=== PATIENT | female | born 1995 | race Caucasian/White ===

== ENCOUNTER 2017-09-24 11:59 | Inpatient (IN) | payer OTHER ==
[2017-09-24 16:07] VITALS: BMI 27.4
--- NOTE | 2017-09-24 18:01 | HP ---
COWS - Scale Resting Pulse: 0= [place] 80 or Below Sweatin= Chills/Flushing Restless Observation: 1= Difficult to Sit Still Pupil Size: 1= Pupils >than Normal Bone or Joint Aches: 2= Severe Diffuse Aches Runny Nose/ Eye Tearin= Nasal Congestion GI Upset > 30mins: 1= Stomach Cramp Tremor Observation: 1= Tremor [place], Not Seen Yawning Observation: 0= None Anxiety or Irritability: 2=Irritable/Anxious Goose Flesh Skin: 3=Piloerection COWS Score: 13 Admission [facility] Chief Complaint: Heroin withdrawal symptoms Allergies/Adverse Reactions: Allergies Allergy/AdvReac Type Severity Reaction Status Date / Time No Known Allergies Allergy Verified 09/24/17 17:00 History of Present Illness: Patient presents with Heroin withdrawal symptoms. Pt started using heroin at age 18. Inject and snorts up to 5-6 bags daily. Last time used was today in the afternoon. Patient denies using cocaine and marijuana but is unsure if heroin is mixed with substances. Attempted detox in past, one year ago here at [facility]. Patient has history of anxiety and depression. Denies SI/HI and suicide attempts. Exam Limitations: No Limitations - Ebola screening Have you traveled outside of the country in the last 21 days: No (N) Have you had contact with anyone from an Ebola affected area: No Have you been sick,other than usual withdrawal symptoms: No Do you have a fever: No - Review of Systems Constitutional: Chills, Night Sweats, Changes in sleep EENT: reports: Nose Congestion Respiratory: reports: No Symptoms reported Cardiac: reports: No Symptoms Reported GI: reports: Nausea, Poor Fluid Intake, Abdominal cramping : reports: No Symptoms Reported Musculoskeletal: reports: Back Pain, Joint Pain, Muscle Pain Integumentary: reports: Flushing, Sweating Neuro: reports: Headache, Tremors Endocrine: reports: Flushing Hematology: reports: No Symptoms Reported Psychiatric: reports: Orientated x3, Anxious, Depressed Patient History - Patient Medical History Hx Anemia: No Hx Asthma: No Hx Chronic Obstructive Pulmonary Disease (COPD): No Hx Cancer: No Hx Cardiac Disorders: No Hx Congestive Heart Failure: No Hx Hypertension: No Hx Hypercholesterolemia: No Hx Pacemaker: No HX Cerebrovascular Accident: No Hx Seizures: No Hx Dementia: No Hx Diabetes: No Hx Gastrointestinal Disorders: No Hx Liver Disease: No Hx Genitourinary Disorders: No Hx Sexually Transmitted Disorders: No Hx Renal Disease (ESRD): No Hx Thyroid Disease: No Hx Human Immunodeficiency Virus (HIV): No (tested one month ago and negative) Hx Hepatitis C: No (tested one month ago and negative) Hx Depression: Yes Hx Suicide Attempt: No (Pt states she cut her wrist under influence at age 18 yrs) Hx Bipolar Disorder: No Hx Schizophrenia: No - Patient Surgical History Past Surgical History: No Hx Neurologic Surgery: No Hx Cataract Extraction: No Hx Cardiac Surgery: No Hx Lung Surgery: No Hx Breast Surgery: No Hx Breast Biopsy: No Hx Abdominal Surgery: No Hx Appendectomy: No Hx Cholecystectomy: No Hx Genitourinary Surgery: No Hx Orthopedic Surgery: No Anesthesia Reaction: No - PPD History Previous Implant?: Yes Documented Results: Negative w/o proof Implanted On Prior R Admission?: No PPD to be Administered?: Yes - Reproductive History Last Menstrual Period: 08/06/17 Patient : No - Smoking Cessation Smoking history: Current every day smoker Have you smoked in the past 12 months: Yes Aproximately how many cigarettes per day: 10 Hx Chewing Tobacco Use: No Initiated information on smoking cessation: Yes 'Breaking Loose' booklet given: 09/24/17 - Substance & Tx. History Hx Alcohol Use: No Hx Substance Use: Yes Substance Use Type: Heroin Hx Substance Use Treatment: Yes - Substances Abused Heroin Route: Injection Frequency: Daily Amount used: 5 bags and up Age of first use: 19 Date of Last Use: 09/24/17 Admission Physical Exam BHS - Vital Signs Vital Signs: Vital Signs - 24 hr 09/24/17 16:01 Temperature 97.9 F Pulse Rate 79 Respiratory 20 Rate Blood Pressure 129/59 - Physical General Appearance: Yes: No Apparent Distress, Nourished, Appropriately Dressed , Tremorous, Anxious HEENTM: Yes: EOMI, Hearing grossly Normal, Normal ENT Inspection, Normocephalic , Normal Voice, DEYANIRA, Pharynx Normal, Nasal Congestion Respiratory: Yes: Chest Non-Tender, Lungs Clear, Normal Breath Sounds, No Respiratory Distress, No Accessory Muscle Use Neck: Yes: No masses,lesions,Nodules, Supple, Trachea in good position Breast: Yes: Breast Exam Deferred Cardiology: Yes: Regular Rhythm, Regular Rate, S1, S2 Abdominal: Yes: Normal Bowel Sounds, Non Tender, Flat, Soft Genitourinary: Yes: Within Normal Limits Back: Yes: Normal Inspection, Muscle Spasm Musculoskeletal: Yes: full range of Motion, Gait Steady, Back pain, Muscle Pain Extremities: Yes: Normal Capillary Refill, Normal Inspection, Normal Range of Motion, Non-Tender, Tremors Neurological: Yes: administration manager II-XII NML intact, Fully Oriented, Alert, Motor Strength 5/5, Depressed Affect Integumentary: Yes: Warm, Moist, Track [place] Lymphatic: Yes: Within Normal Limits - Diagnostic (1) Opioid dependence with withdrawal Current Visit: Yes Status: Acute (2) Nicotine dependence Current Visit: Yes Status: Acute Qualifiers: Substance use status: uncomplicated (3) Depressed affect Current Visit: Yes Status: Acute (4) Anxiety Current Visit: Yes Status: Acute Cleared for Admission [facility] - Detox or Rehab [facility] Level of Care: Medically Managed Detox Regimen/Protocol: Methadone [facility] Breath Alcohol Content Breath Alcohol Content: 0 Urine Pregancy Test - Result Urine Test Results: Negative- NO Line Present Urine Drug Screen - Results Drug Screen Negative: No Urine Drug Screen Results: THC-Marijuana, GORDON-Cocaine, OPI-Opiates
[2017-09-24] MEDS ORDERED: MAG HYDROX/AL HYDROX/SIMETH 30 ML UNIT-DOSE CUP PO PRN (18:10)
[2017-09-24] MEDS ORDERED: IBUPROFEN 400 MG TABLET (FP) PO PRN (18:10)
[2017-09-24] MEDS ORDERED: P-EPHED 60MG/TRIPROLIDI 2.5MG TABLET PO PRN (18:10)
[2017-09-24] MEDS ORDERED: guaiFENesin/D-METHORPHAN HB 10 ML UNIT-DOSE CUPS PO PRN (18:10)
[2017-09-24] MEDS ORDERED: LOPERAMIDE HCL 2 MG CAPSULE PO PRN (18:10)
[2017-09-24] MEDS ORDERED: MAGNESIUM CITRATE 300 ML BOTTLE PO PRN (18:10)
[2017-09-24] MEDS ORDERED: MAGNESIUM HYDROX 2400MG/30ML ORAL SUSPENSION 30 ML CUP PO PRN (18:10)
[2017-09-24] MEDS ORDERED: MENTHOL/PHENOL 1 EACH UD MM PRN (18:10)
[2017-09-24] MEDS ORDERED: ACETAMINOPHEN 325 MG TABLET (FP) PO PRN (18:10)
[2017-09-24] MEDS ORDERED: METHADONE HCL 10 MG TABLET (FOR DETOX USE ONLY) PO ONE ×2 (18:30→23:00)
[2017-09-24] MEDS ORDERED: METHADONE HCL 10 MG TABLET (FOR DETOX USE ONLY) ONE (20:47)
[2017-09-24] MEDS: diazePAM 5 MG TABLET PO PRN (20:54)
[2017-09-24] MEDS: THIAMINE HCL 100 MG TABLET (FP) PO SCH (22:19)
[2017-09-24] MEDS: MELATONIN 5 MG TABLETS PO PRN (22:20)
[2017-09-25] MEDS ORDERED: METHADONE HCL 10 MG TABLET (FOR DETOX USE ONLY) PO ONE (10:00)
--- NOTE | 2017-09-25 10:05 | CONSULT ---
[facility] Psychiatric Consult - Data Date of interview: 09/25/17 Psychiatric History: Patient found at bed, refusing to be psychiatrically evaluated.
[2017-09-25 10:34] LABS: CHLORIDE 105 mmol/L (98-107); POTASSIUM 4.5 mmol/L (3.5-5.1); SODIUM 140 mmol/L (136-145)
[2017-09-25 10:38] LABS: HEMATOCRIT 41.3 % (32.4-45.2); HEMOGLOBIN 13.8 GM/dL (10.7-15.3); MCH 29.2 pg (25.7-33.7); MCHC 33.3 g/dl (32.0-36.0); MEAN CELL VOLUME 87.7 fl (80-96); MEAN PLT VOLUME 8.7 fl (7.5-11.1); PLATELET COUNT 292 K/MM3 (134-434); RBC 4.71 M/mm3 (3.60-5.2); RDW 13.8 % (11.6-15.6); WHITE BLOOD COUNT 4.6 K/mm3 (4.0-10.0)
--- NOTE | 2017-09-25 10:39 | PN ---
S COWS - Scale Resting Pulse: 0= [place] 80 or Below Sweatin= Chills/Flushing Restless Observation: 1= Difficult to Sit Still Pupil Size: 1= Pupils >than Normal Bone or Joint Aches: 2= Severe Diffuse Aches Runny Nose/ Eye Tearin= Nasal Congestion GI Upset > 30mins: 2= Nausea/Diarrhea Tremor Observation of Outstretched Hands: 1= Tremor [place], Not Seen Yawning Observation: 2= >3x During Session Anxiety or Irritability: 1=Feels Anxious/Irritable Goose Flesh Skin: 0=Smooth Skin COWS Score: 12 S Progress Note (SOAP) Subjective: joint pain body ache sweat tremor mild gi distress Objective: 09/25/17 11:14 Vital Signs Temperature 97.5 F L 09/25/17 09:11 Pulse Rate 66 09/25/17 09:11 Respiratory Rate 20 09/25/17 09:11 Blood Pressure 109/55 09/25/17 09:11 O2 Sat by Pulse Oximetry (%) Laboratory Last Values WBC 4.6 K/mm3 (4.0-10.0) 09/25/17 08:00 RBC 4.71 M/mm3 (3.60-5.2) 09/25/17 08:00 Hgb 13.8 GM/dL (10.7-15.3) 09/25/17 08:00 Hct 41.3 % (32.4-45.2) 09/25/17 08:00 MCV 87.7 fl (80-96) 09/25/17 08:00 MCH 29.2 pg (25.7-33.7) 09/25/17 08:00 MCHC 33.3 g/dl (32.0-36.0) 09/25/17 08:00 RDW 13.8 % (11.6-15.6) 09/25/17 08:00 Plt Count 292 K/MM3 (134-434) 09/25/17 08:00 MPV 8.7 fl (7.5-11.1) 09/25/17 08:00 Sodium 140 mmol/L (136-145) 09/25/17 08:00 Potassium 4.5 mmol/L (3.5-5.1) 09/25/17 08:00 Chloride 105 mmol/L (98-107) 09/25/17 08:00 Carbon Dioxide 26 mmol/L (21-32) 09/25/17 08:00 Anion Gap 9 (8-16) 09/25/17 08:00 BUN 12 mg/dL (7-18) 09/25/17 08:00 Creatinine 0.7 mg/dL (0.55-1.02) 09/25/17 08:00 Creat Clearance w eGFR > 60 (>60) 09/25/17 08:00 Random Glucose 82 mg/dL (74-106) 09/25/17 08:00 Calcium 9.1 mg/dL (8.5-10.1) 09/25/17 08:00 Total Bilirubin 0.1 mg/dL (0.2-1.0) L 09/25/17 08:00 AST 11 U/L (15-37) L 09/25/17 08:00 ALT 25 U/L (12-78) 09/25/17 08:00 Alkaline Phosphatase 62 U/L (45-117) 09/25/17 08:00 Total Protein 7.0 g/dl (6.4-8.2) 09/25/17 08:00 Albumin 3.5 g/dl (3.4-5.0) 09/25/17 08:00 lab noted Assessment: 09/25/17 11:14 withdrawal sx Plan: continue detox
[2017-09-25] MEDS: PRENATAL VITAMINS W/ FOLIC ACID TABLET (FP) PO SCH (10:44)
[2017-09-25] MEDS: diazePAM 5 MG TABLET PO PRN ×3 (10:45→22:07)
[2017-09-25] MEDS: NICOTINE 21 MG/24 HOURS TOPICAL PATCH TD SCH (10:45)
[2017-09-25 11:00] LABS: ALBUMIN 3.5 g/dl (3.4-5.0); ALK PHOS 62 U/L (45-117); ANION GAP 9 (8-16); BILIRUBIN,TOTAL 0.1 mg/dL (0.2-1.0); BLOOD UREA NITROGEN 12 mg/dL (7-18); CALCIUM 9.1 mg/dL (8.5-10.1); CO2 26 mmol/L (21-32); CREATININE 0.7 mg/dL (0.55-1.02); GLUCOSE,RANDOM 82 mg/dL (74-106); SGOT/AST 11 U/L (15-37); SGPT/ALT 25 U/L (12-78)
--- NOTE | 2017-09-25 11:43 | EKG ---
Test Reason : Blood Pressure : / mmHG Vent. Rate : 066 BPM Atrial Rate : 066 BPM P-R Int : 156 ms QRS Dur : 098 ms QT Int : 386 ms P-R-T Axes : 070 086 060 degrees QTc Int : 404 ms NORMAL SINUS RHYTHM NORMAL ECG NO PREVIOUS ECGS AVAILABLE Confirmed by FIONA TAYLOR, NISHA ([id number]) on 09/25/2017 11:43:23 AM Referred By: Confirmed By:NISHA JAIMES MD
[2017-09-25] MEDS: MELATONIN 5 MG TABLETS PO PRN (22:07)
[2017-09-25] MEDS: THIAMINE HCL 100 MG TABLET (FP) PO SCH (22:07)
[2017-09-26] MEDS ORDERED: METHADONE HCL 5 MG TABLET (FOR DETOX USE ONLY) PO ONE (10:00)
[2017-09-26] MEDS: PRENATAL VITAMINS W/ FOLIC ACID TABLET (FP) PO SCH (10:10)
[2017-09-26] MEDS: diazePAM 5 MG TABLET PO PRN ×3 (10:10→19:58)
[2017-09-26] MEDS: NICOTINE 21 MG/24 HOURS TOPICAL PATCH TD SCH (10:11)
--- NOTE | 2017-09-26 14:10 | PN ---
S COWS - Scale Resting Pulse: 0= [place] 80 or Below Sweatin= Chills/Flushing Restless Observation: 3= Extraneous Movement Pupil Size: 1= Pupils >than Normal Bone or Joint Aches: 2= Severe Diffuse Aches Runny Nose/ Eye Tearin= Runny Nose/Eyes GI Upset > 30mins: 2= Nausea/Diarrhea Tremor Observation of Outstretched Hands: 2= Slight Tremor Visible Yawning Observation: 2= >3x During Session Anxiety or Irritability: 2=Irritable/Anxious Goose Flesh Skin: 0=Smooth Skin COWS Score: 17 BHS Progress Note (SOAP) Subjective: alert,irritable,anxious,interrupted sleep,tremor,pain in the body and back Objective: 09/26/17 14:08 Vital Signs Temperature 98.1 F 09/26/17 14:07 Pulse Rate 92 H 09/26/17 14:07 Respiratory Rate 20 09/26/17 14:07 Blood Pressure 110/61 09/26/17 14:07 O2 Sat by Pulse Oximetry (%) 09/26/17 14:09 Laboratory Last Values WBC 4.6 K/mm3 (4.0-10.0) 09/25/17 08:00 RBC 4.71 M/mm3 (3.60-5.2) 09/25/17 08:00 Hgb 13.8 GM/dL (10.7-15.3) 09/25/17 08:00 Hct 41.3 % (32.4-45.2) 09/25/17 08:00 MCV 87.7 fl (80-96) 09/25/17 08:00 MCH 29.2 pg (25.7-33.7) 09/25/17 08:00 MCHC 33.3 g/dl (32.0-36.0) 09/25/17 08:00 RDW 13.8 % (11.6-15.6) 09/25/17 08:00 Plt Count 292 K/MM3 (134-434) 09/25/17 08:00 MPV 8.7 fl (7.5-11.1) 09/25/17 08:00 Sodium 140 mmol/L (136-145) 09/25/17 08:00 Potassium 4.5 mmol/L (3.5-5.1) 09/25/17 08:00 Chloride 105 mmol/L (98-107) 09/25/17 08:00 Carbon Dioxide 26 mmol/L (21-32) 09/25/17 08:00 Anion Gap 9 (8-16) 09/25/17 08:00 BUN 12 mg/dL (7-18) 09/25/17 08:00 Creatinine 0.7 mg/dL (0.55-1.02) 09/25/17 08:00 Creat Clearance w eGFR > 60 (>60) 09/25/17 08:00 Random Glucose 82 mg/dL (74-106) 09/25/17 08:00 Calcium 9.1 mg/dL (8.5-10.1) 09/25/17 08:00 Total Bilirubin 0.1 mg/dL (0.2-1.0) L 09/25/17 08:00 AST 11 U/L (15-37) L 09/25/17 08:00 ALT 25 U/L (12-78) 09/25/17 08:00 Alkaline Phosphatase 62 U/L (45-117) 09/25/17 08:00 Total Protein 7.0 g/dl (6.4-8.2) 09/25/17 08:00 Albumin 3.5 g/dl (3.4-5.0) 09/25/17 08:00 RPR Titer Nonreactive (NONREACTIVE) 09/25/17 08:00 Assessment: 09/26/17 14:09 withdrawal symptom Plan: continue detox
[2017-09-26] MEDS: MELATONIN 5 MG TABLETS PO PRN (22:05)
[2017-09-26] MEDS: THIAMINE HCL 100 MG TABLET (FP) PO SCH (22:05)
[2017-09-26] MEDS: hydrOXYzine PAMOATE 50 MG CAPSULE (FP) PO PRN (22:05)
[2017-09-27] MEDS ORDERED: METHADONE HCL 5 MG TABLET (FOR DETOX USE ONLY) PO ONE (10:00)
[2017-09-27] MEDS: PRENATAL VITAMINS W/ FOLIC ACID TABLET (FP) PO SCH (10:16)
[2017-09-27] MEDS: diazePAM 5 MG TABLET PO PRN ×2 (10:17→16:53)
[2017-09-27] MEDS: NICOTINE 21 MG/24 HOURS TOPICAL PATCH TD SCH (10:18)
--- NOTE | 2017-09-27 14:04 | PN ---
BHS Progress Note (SOAP) Subjective: alert,irritable,anxious,interrupted sleep,pain in the body Objective: 09/27/17 14:03 Vital Signs Temperature 97.7 F 09/27/17 10:49 Pulse Rate 64 09/27/17 10:49 Respiratory Rate 18 09/27/17 10:49 Blood Pressure 115/73 09/27/17 10:49 O2 Sat by Pulse Oximetry (%) Assessment: 09/27/17 14:03 withdrawal symptom Plan: continue detox
[2017-09-27] MEDS: NICOTINE POLACRILEX 2 MG GUM BC PRN (16:54)
[2017-09-27] MEDS: THIAMINE HCL 100 MG TABLET (FP) PO SCH (23:05)
[2017-09-27] MEDS: MELATONIN 5 MG TABLETS PO PRN (23:05)
[2017-09-27] MEDS: hydrOXYzine PAMOATE 50 MG CAPSULE (FP) PO PRN (23:07)
[2017-09-28] MEDS ORDERED: METHADONE HCL 10 MG TABLET (FOR DETOX USE ONLY) PO ONE (10:00)
[2017-09-28] MEDS: PRENATAL VITAMINS W/ FOLIC ACID TABLET (FP) PO SCH (10:08)
[2017-09-28] MEDS: NICOTINE 21 MG/24 HOURS TOPICAL PATCH TD SCH (10:09)
--- NOTE | 2017-09-28 12:37 | PN ---
BHS Progress Note (SOAP) Subjective: feeling better less sweat no tremor mild body ache Objective: 09/28/17 12:37 Vital Signs Temperature 98.0 F 09/28/17 11:08 Pulse Rate 79 09/28/17 11:08 Respiratory Rate 16 09/28/17 11:08 Blood Pressure 144/76 09/28/17 11:08 O2 Sat by Pulse Oximetry (%) Laboratory Last Values WBC 4.6 K/mm3 (4.0-10.0) 09/25/17 08:00 RBC 4.71 M/mm3 (3.60-5.2) 09/25/17 08:00 Hgb 13.8 GM/dL (10.7-15.3) 09/25/17 08:00 Hct 41.3 % (32.4-45.2) 09/25/17 08:00 MCV 87.7 fl (80-96) 09/25/17 08:00 MCH 29.2 pg (25.7-33.7) 09/25/17 08:00 MCHC 33.3 g/dl (32.0-36.0) 09/25/17 08:00 RDW 13.8 % (11.6-15.6) 09/25/17 08:00 Plt Count 292 K/MM3 (134-434) 09/25/17 08:00 MPV 8.7 fl (7.5-11.1) 09/25/17 08:00 Sodium 140 mmol/L (136-145) 09/25/17 08:00 Potassium 4.5 mmol/L (3.5-5.1) 09/25/17 08:00 Chloride 105 mmol/L (98-107) 09/25/17 08:00 Carbon Dioxide 26 mmol/L (21-32) 09/25/17 08:00 Anion Gap 9 (8-16) 09/25/17 08:00 BUN 12 mg/dL (7-18) 09/25/17 08:00 Creatinine 0.7 mg/dL (0.55-1.02) 09/25/17 08:00 Creat Clearance w eGFR > 60 (>60) 09/25/17 08:00 Random Glucose 82 mg/dL (74-106) 09/25/17 08:00 Calcium 9.1 mg/dL (8.5-10.1) 09/25/17 08:00 Total Bilirubin 0.1 mg/dL (0.2-1.0) L 09/25/17 08:00 AST 11 U/L (15-37) L 09/25/17 08:00 ALT 25 U/L (12-78) 09/25/17 08:00 Alkaline Phosphatase 62 U/L (45-117) 09/25/17 08:00 Total Protein 7.0 g/dl (6.4-8.2) 09/25/17 08:00 Albumin 3.5 g/dl (3.4-5.0) 09/25/17 08:00 RPR Titer Nonreactive (NONREACTIVE) 09/25/17 08:00 lab noted Assessment: 09/28/17 12:37 mild withdrawal sx Plan: medically supervised detox
[2017-09-28] MEDS: NICOTINE POLACRILEX 2 MG GUM BC PRN ×2 (17:46→22:13)
[2017-09-28] MEDS: THIAMINE HCL 100 MG TABLET (FP) PO SCH (22:12)
[2017-09-28] MEDS: hydrOXYzine PAMOATE 50 MG CAPSULE (FP) PO PRN (22:12)
[2017-09-29] MEDS ORDERED: METHADONE HCL 5 MG TABLET (FOR DETOX USE ONLY) PO ONE (06:00)
--- NOTE | 2017-09-29 09:06 | DS ---
[facility] Detox Discharge Summary Admission Date: 09/24/17 Discharge Date: 09/29/17 - History Present History: Opioid Dependence Additional Comments: 22 years old female admitted on09/24/17 for opiate withdrawal sx completed opiate detox regimen tolerated well denies opiate withdrawal sx alert oriented x 3 no acute distress aftercare [facility] health services for physical and psychosocial issues patient agrees community self help self management groups and meetings for sobriety support - Physical Exam Results Vital Signs: Vital Signs Temperature 97.3 F L 09/29/17 08:01 Pulse Rate 90 09/29/17 08:01 Respiratory Rate 20 09/29/17 08:01 Blood Pressure 119/71 09/29/17 08:01 O2 Sat by Pulse Oximetry (%) Pertinent Admission Physical Exam Findings: opiate withdrawal sx Vital Signs Temperature 97.3 F L 09/29/17 08:01 Pulse Rate 90 09/29/17 08:01 Respiratory Rate 20 09/29/17 08:01 Blood Pressure 119/71 09/29/17 08:01 O2 Sat by Pulse Oximetry (%) Laboratory Last Values WBC 4.6 K/mm3 (4.0-10.0) 09/25/17 08:00 RBC 4.71 M/mm3 (3.60-5.2) 09/25/17 08:00 Hgb 13.8 GM/dL (10.7-15.3) 09/25/17 08:00 Hct 41.3 % (32.4-45.2) 09/25/17 08:00 MCV 87.7 fl (80-96) 09/25/17 08:00 MCH 29.2 pg (25.7-33.7) 09/25/17 08:00 MCHC 33.3 g/dl (32.0-36.0) 09/25/17 08:00 RDW 13.8 % (11.6-15.6) 09/25/17 08:00 Plt Count 292 K/MM3 (134-434) 09/25/17 08:00 MPV 8.7 fl (7.5-11.1) 09/25/17 08:00 Sodium 140 mmol/L (136-145) 09/25/17 08:00 Potassium 4.5 mmol/L (3.5-5.1) 09/25/17 08:00 Chloride 105 mmol/L (98-107) 09/25/17 08:00 Carbon Dioxide 26 mmol/L (21-32) 09/25/17 08:00 Anion Gap 9 (8-16) 09/25/17 08:00 BUN 12 mg/dL (7-18) 09/25/17 08:00 Creatinine 0.7 mg/dL (0.55-1.02) 09/25/17 08:00 Creat Clearance w eGFR > 60 (>60) 09/25/17 08:00 Random Glucose 82 mg/dL (74-106) 09/25/17 08:00 Calcium 9.1 mg/dL (8.5-10.1) 09/25/17 08:00 Total Bilirubin 0.1 mg/dL (0.2-1.0) L 09/25/17 08:00 AST 11 U/L (15-37) L 09/25/17 08:00 ALT 25 U/L (12-78) 09/25/17 08:00 Alkaline Phosphatase 62 U/L (45-117) 09/25/17 08:00 Total Protein 7.0 g/dl (6.4-8.2) 09/25/17 08:00 Albumin 3.5 g/dl (3.4-5.0) 09/25/17 08:00 RPR Titer Nonreactive (NONREACTIVE) 09/25/17 08:00 lab noted - Treatment Hospital Course: Detox Protocol Followed, Detoxed Safely, Responded well, Discharged Condition Good, Rehab Referral Accepted Patient has Accepted a Rehab Referral to: [facility] services/self-help groups - Medication Discharge Medications: Ambulatory Orders Famotidine [Pepcid -] 40 mg PO DAILY #10 tablet 12/22/15 NK [No Known Home Medication] 09/24/17 - Diagnosis (1) Nicotine dependence Current Visit: Yes Status: Acute Qualifiers: Nicotine product type: cigarettes Substance use status: in withdrawal Qualified Code(s): F17.213 - Nicotine dependence, cigarettes, with withdrawal (2) Opioid dependence with withdrawal Current Visit: Yes Status: Acute - AMA Did Patient Leave Against Medical Advice: No
[2017-09-29] MEDS: PRENATAL VITAMINS W/ FOLIC ACID TABLET (FP) PO SCH (10:28)
[2017-09-29] MEDS: NICOTINE 21 MG/24 HOURS TOPICAL PATCH TD SCH (10:28)
[2017-09-29 10:33] VITALS: BP 108/58; PULSE 87; TEMP 97.5
== END 2017-09-29 11:28 | disposition home or self-care (01) | DRG 773 ==
LOC: YASAS 11:59 → Y6N 17:39 → MERGE 17:39 → UNMERGE 17:39 → Y6N 09-25 15:47
PROVIDERS: ADMIT Surgery; ATTEND Surgery
PROC: HZ2ZZZZ Detoxification Services for Substance Abuse Treatment (ICD-10-PCS; principal; 2017-09-24)
DX: F11.23 Opioid dependence with withdrawal (principal); F17.213 Nicotine dependence, cigarettes, with withdrawal; F32.9 Major depressive disorder, single episode, unspecified; F41.9 Anxiety disorder, unspecified
CPT/HCPCS: 36415; 80053; 85027; 86593; 93005; 93010

== ENCOUNTER 2017-11-05 11:58 | Inpatient (IN) | payer OTHER ==
[2017-11-05 13:24] VITALS: BMI 27.4
--- NOTE | 2017-11-05 20:27 | HP ---
COWS - Scale Resting Pulse: 1= [place] 81-100 Sweatin=Flushed/Facial Moisture Restless Observation: 1= Difficult to Sit Still Pupil Size: 0= Normal to Room Light Bone or Joint Aches: 2= Severe Diffuse Aches Runny Nose/ Eye Tearin= Runny Nose/Eyes GI Upset > 30mins: 1= Stomach Cramp Tremor Observation: 4= Gross Tremor/Twitching Yawning Observation: 0= None Anxiety or Irritability: 4=Extreme Anxiety Goose Flesh Skin: 0=Smooth Skin COWS Score: 17 Admission [facility] Chief Complaint: Heroin withdrawal symptoms Allergies/Adverse Reactions: Allergies Allergy/AdvReac Type Severity Reaction Status Date / Time No Known Allergies Allergy Verified 11/05/17 15:11 History of Present Illness: 22 years old female with 3 years history of heroine dependence is seeking admission to detox. Patient was in previous detox at [facility] and reports 7 months of sobriety. She has medical history of urinary tract infection and anxiety. She denies suicide attempt and suicidal ideation at this time. Exam Limitations: No Limitations - Ebola screening Have you traveled outside of the country in the last 21 days: No (N) Have you had contact with anyone from an Ebola affected area: No Have you been sick,other than usual withdrawal symptoms: No Do you have a fever: No - Review of Systems Constitutional: Chills, Loss of Appetite, Malaise, Night Sweats, Changes in sleep, Weakness EENT: reports: Tearing Respiratory: reports: No Symptoms reported Cardiac: reports: No Symptoms Reported GI: reports: Poor Fluid Intake, Abdominal cramping : reports: No Symptoms Reported Musculoskeletal: reports: Joint Pain Integumentary: reports: Dryness Neuro: reports: Tremors Endocrine: reports: No Symptoms Reported Hematology: reports: No Symptoms Reported Psychiatric: reports: Anxious Other Systems: Reviewed and Negative Patient History - Patient Medical History Hx Anemia: No Hx Asthma: No Hx Chronic Obstructive Pulmonary Disease (COPD): No Hx Cancer: No Hx Cardiac Disorders: No Hx Congestive Heart Failure: No Hx Hypertension: No Hx Hypercholesterolemia: No Hx Pacemaker: No HX Cerebrovascular Accident: No Hx Seizures: No Hx Dementia: No Hx Diabetes: No Hx Gastrointestinal Disorders: No Hx Liver Disease: No Hx Genitourinary Disorders: Yes (UTI) Hx Sexually Transmitted Disorders: No Hx Renal Disease (ESRD): No Hx Thyroid Disease: No Hx Human Immunodeficiency Virus (HIV): No (Negative 2018) Hx Hepatitis C: No (Negative 2018) Hx Depression: No Hx Suicide Attempt: No (Denies suicide attempt and suicidal ideation at this time) Hx Bipolar Disorder: No Hx Schizophrenia: No Other Medical History: Anxiety - Not on medication - Patient Surgical History Past Surgical History: No Hx Neurologic Surgery: No Hx Cataract Extraction: No Hx Cardiac Surgery: No Hx Lung Surgery: No Hx Breast Surgery: No Hx Breast Biopsy: No Hx Abdominal Surgery: No Hx Appendectomy: No Hx Cholecystectomy: No Hx Genitourinary Surgery: No Hx Section: No Hx Orthopedic Surgery: No Anesthesia Reaction: No - PPD History Previous Implant?: Yes Documented Results: Negative w/proof Implanted On Prior [facility] Admission?: Yes Date: 09/26/17 Results: 0 mm PPD to be Administered?: No - Reproductive History Patient is a Female of Child Bearing Age (11 -55 yrs old): Yes Last Menstrual Period: 10/19/17 Patient : No - Smoking Cessation Smoking history: Current every day smoker Have you smoked in the past 12 months: Yes Aproximately how many cigarettes per day: 10 Hx Chewing Tobacco Use: No Initiated information on smoking cessation: Yes 'Breaking Loose' booklet given: 11/05/17 - Substance & Tx. History Hx Alcohol Use: No Hx Substance Use: Yes Substance Use Type: Heroin (Patient denies marijuana and benzodiazepine use.) Hx Substance Use Treatment: Yes ([facility] 2017) - Substances Abused Heroin Route: Injection Frequency: Daily Amount used: 5 bags Age of first use: 19 Date of Last Use: 11/05/17 Family Disease History - Family Disease History Family History: Denies Admission Physical Exam [facility] - Vital Signs Vital Signs: Vital Signs - 24 hr 11/05/17 13:21 Temperature 98 F Pulse Rate 98 H Respiratory 20 Rate Blood Pressure 131/75 - Physical General Appearance: Yes: Moderate Distress, Tremorous, Irritable, Anxious HEENTM: Yes: EOMI, Normal ENT Inspection, Normocephalic, Normal Voice, DEYANIRA Respiratory: Yes: Lungs Clear, Normal Breath Sounds, No Respiratory Distress, No Accessory Muscle Use Neck: Yes: Supple Breast: Yes: Breast Exam Deferred Cardiology: Yes: Tachycardia Abdominal: Yes: Normal Bowel Sounds, Soft Genitourinary: Yes: Within Normal Limits Back: Yes: Normal Inspection Musculoskeletal: Yes: Muscle Pain Extremities: Yes: Tremors Neurological: Yes: Alert, Normal Mood/Affect Integumentary: Yes: Dry Lymphatic: Yes: Within Normal Limits - Diagnostic (1) Nicotine dependence Current Visit: Yes Status: Chronic Qualifiers: Nicotine product type: cigarettes Substance use status: in withdrawal Qualified Code(s): F17.213 - Nicotine dependence, cigarettes, with withdrawal (2) Opioid dependence with withdrawal Current Visit: Yes Status: Chronic BHS Breath Alcohol Content Breath Alcohol Content: 0 Urine Pregancy Test - Result Urine Test Results: Negative- NO Line Present Urine Drug Screen - Results Drug Screen Negative: No Urine Drug Screen Results: THC-Marijuana, OPI-Opiates, BZO-Benzodiazepines
[2017-11-05] MEDS ORDERED: MENTHOL/PHENOL 1 EACH UD MM PRN (20:38)
[2017-11-05] MEDS ORDERED: LOPERAMIDE HCL 2 MG CAPSULE PO PRN (20:38)
[2017-11-05] MEDS ORDERED: MAGNESIUM CITRATE 300 ML BOTTLE PO PRN (20:38)
[2017-11-05] MEDS ORDERED: P-EPHED 60MG/TRIPROLIDI 2.5MG TABLET PO PRN (20:38)
[2017-11-05] MEDS ORDERED: IBUPROFEN 400 MG TABLET (FP) PO PRN (20:38)
[2017-11-05] MEDS ORDERED: guaiFENesin/D-METHORPHAN HB 10 ML UNIT-DOSE CUPS PO PRN (20:38)
[2017-11-05] MEDS ORDERED: ACETAMINOPHEN 325 MG TABLET (FP) PO PRN (20:38)
[2017-11-05] MEDS ORDERED: MAG HYDROX/AL HYDROX/SIMETH 30 ML UNIT-DOSE CUP PO PRN (20:38)
[2017-11-05] MEDS ORDERED: MAGNESIUM HYDROX 2400MG/30ML ORAL SUSPENSION 30 ML CUP PO PRN (20:38)
[2017-11-05] MEDS ORDERED: METHADONE HCL 10 MG TABLET (FOR DETOX USE ONLY) PO ONE ×2 (20:45→23:00)
[2017-11-05] MEDS: diazePAM 5 MG TABLET PO PRN (21:14)
[2017-11-05] MEDS ORDERED: MELATONIN 5 MG TABLETS PO PRN (22:00)
[2017-11-05] MEDS: THIAMINE HCL 100 MG TABLET (FP) PO SCH (22:31)
[2017-11-06 02:18] LABS: URINE APPEARANCE TURBID; URINE BILIRUBIN NEGATIVE (<2.0 mg/dL); URINE COLOR YELLOW; URINE GLUCOSE (UA) NEGATIVE (NEGATIVE); URINE KETONE NEGATIVE (NEGATIVE); URINE LEUK ESTERASE NEGATIVE (NEGATIVE); URINE NITRITE NEGATIVE (NEGATIVE); URINE UROBILINOGEN NEGATIVE mg/dL (0.2-1.0)
[2017-11-06 02:38] LABS: URINE PROTEIN 1+ (NEGATIVE)
[2017-11-06 02:42] LABS: EPI CELLS MODERATE /HPF (FEW); URINE BACTERIA MANY /hpf (NONE SEEN); URINE MUCUS MODERATE
--- NOTE | 2017-11-06 08:58 | CONSULT ---
[facility] Psychiatric Consult - Data Date of interview: 11/06/17 Admission source: [facility] Identifying data: This is 22 years old female, single, unemployed, living with family, with no psychiatric hospitalization histoey, with 3 years history of heroine dependence is seeking admission to detox. Substance Abuse History: - Smoking Cessation. Smoking history: Current every day smoker. Have you smoked in the past 12 months: Yes. Aproximately how many cigarettes per day: 10. Hx Chewing Tobacco Use: No. Initiated information on smoking cessation: Yes. 'Breaking Loose' booklet given: 11/05/17. - Substance & Tx. History. Hx Alcohol Use: No. Hx Substance Use: Yes. Substance Use Type : Heroin (Patient denies marijuana and benzodiazepine use.). Hx Substance Use Treatment: Yes ([facility] 2017). - Substances Abused. Heroin. Route: Injection. Frequency: Daily. Amount used: 5 bags. Age of first use: 19. Date of Last Use: 11/05/17 Medical History: Denies significant medical issues. History of UTI as per computer Psychiatric History: Patient reports anxiety and insomnia, reports nos psychiatric hospitalization hiustory, reports no medicatiomnsn taking prior to admission. Asking for isomnia medications. Denies suicidal, homicidal history Physical/Sexual Abuse/Trauma History: Denies Additional Comment: Observation. Seroquel 100mg po qhs Mental Status Exam - Mental Status Exam Alert and Oriented to: Person Cognitive Function: Fair Patient Appearance: Unkempt Mood: Sad Affect: Flat Patient Behavior: Sedated Speech Pattern: Delayed Voice Loudness: Mildly Soft/Quiet Thought Process: Goal Oriented Thought Disorder: Being Controlled Hallucinations: Denies Suicidal Ideation: Denies Homicidal Ideation: Denies Insight/Judgement: Fair Sleep: Difficulty falling asleep Appetite: Fair Muscle strength/Tone: Mild Hypotonicity Gait/Station: Shuffling Additional Comments: Observation. Seroquel 100mg po qhs Psychiatric Findings - Problem List ([place] 1, 2,3) (1) Nicotine dependence Current Visit: Yes Status: Chronic Qualifiers: Nicotine product type: cigarettes Substance use status: in withdrawal Qualified Code(s): F17.213 - Nicotine dependence, cigarettes, with withdrawal (2) Opioid dependence with withdrawal Current Visit: Yes Status: Chronic (3) Anxiety Current Visit: No Status: Acute (4) Gastroenteritis Current Visit: No Status: Acute (5) Opioid dependence with withdrawal Current Visit: No Status: Chronic (6) UTI (lower urinary tract infection) Current Visit: No Status: Chronic (7) Opioid-induced sleep disorder, insomnia type, with onset during discontinuation/withdrawal Current Visit: Yes Status: Acute - Initial Treatment Plan Initial Treatment Plan: Observation. Seroquel 100mg po qhs
[2017-11-06] MEDS ORDERED: METHADONE HCL 10 MG TABLET (FOR DETOX USE ONLY) PO ONE (10:00)
[2017-11-06 10:15] LABS: HEMOGLOBIN 12.6 GM/dL (10.7-15.3); MCH 29.5 pg (25.7-33.7); MCHC 34.1 g/dl (32.0-36.0); MEAN CELL VOLUME 86.6 fl (80-96); MEAN PLT VOLUME 8.3 fl (7.5-11.1); PLATELET COUNT 290 K/MM3 (134-434); RBC 4.27 M/mm3 (3.60-5.2); RDW 13.9 % (11.6-15.6); WHITE BLOOD COUNT 5.7 K/mm3 (4.0-10.0)
[2017-11-06 10:50] LABS: CHLORIDE 107 mmol/L (98-107); POTASSIUM 4.2 mmol/L (3.5-5.1); SODIUM 142 mmol/L (136-145)
[2017-11-06] MEDS: diazePAM 5 MG TABLET PO PRN ×4 (10:53→23:56)
[2017-11-06] MEDS: PRENATAL VITAMINS W/ FOLIC ACID TABLET (FP) PO SCH (10:53)
[2017-11-06] MEDS: NICOTINE 14 MG/24 HOURS TOPICAL PATCH TD SCH (10:55)
[2017-11-06 11:12] LABS: ALBUMIN 3.4 g/dl (3.4-5.0); ALK PHOS 66 U/L (45-117); ANION GAP 9 (8-16); BILIRUBIN,TOTAL 0.4 mg/dL (0.2-1.0); BLOOD UREA NITROGEN 12 mg/dL (7-18); CALCIUM 8.9 mg/dL (8.5-10.1); CO2 26 mmol/L (21-32); CREATININE 0.7 mg/dL (0.55-1.02); GLUCOSE,RANDOM 86 mg/dL (74-106); SGOT/AST 11 U/L (15-37); SGPT/ALT 19 U/L (12-78); TOT PROT 6.6 g/dl (6.4-8.2)
--- NOTE | 2017-11-06 11:27 | PN ---
BHS COWS - Scale Resting Pulse: 1= [place] 81-100 Sweatin= Chills/Flushing Restless Observation: 1= Difficult to Sit Still Pupil Size: 1= Pupils >than Normal Bone or Joint Aches: 2= Severe Diffuse Aches Runny Nose/ Eye Tearin= Runny Nose/Eyes GI Upset > 30mins: 2= Nausea/Diarrhea Tremor Observation of Outstretched Hands: 2= Slight Tremor Visible Yawning Observation: 2= >3x During Session Anxiety or Irritability: 2=Irritable/Anxious Goose Flesh Skin: 0=Smooth Skin COWS Score: 16 BHS Progress Note (SOAP) Subjective: JOINTS PAIN BODY ACHES SWEAT TREMOR RESTLESSNESS Objective: 11/06/17 11:28 Vital Signs Temperature 98.2 F 11/06/17 10:26 Pulse Rate 83 11/06/17 10:26 Respiratory Rate 18 11/06/17 10:26 Blood Pressure 108/58 11/06/17 10:26 O2 Sat by Pulse Oximetry (%) Laboratory Last Values WBC 5.7 K/mm3 (4.0-10.0) 11/06/17 07:30 RBC 4.27 M/mm3 (3.60-5.2) 11/06/17 07:30 Hgb 12.6 GM/dL (10.7-15.3) 11/06/17 07:30 Hct 37.0 % (32.4-45.2) 11/06/17 07:30 MCV 86.6 fl (80-96) 11/06/17 07:30 MCH 29.5 pg (25.7-33.7) 11/06/17 07:30 MCHC 34.1 g/dl (32.0-36.0) 11/06/17 07:30 RDW 13.9 % (11.6-15.6) 11/06/17 07:30 Plt Count 290 K/MM3 (134-434) 11/06/17 07:30 MPV 8.3 fl (7.5-11.1) 11/06/17 07:30 Sodium 142 mmol/L (136-145) 11/06/17 07:30 Potassium 4.2 mmol/L (3.5-5.1) 11/06/17 07:30 Chloride 107 mmol/L (98-107) 11/06/17 07:30 Urine Color Yellow 11/05/17 22:36 Urine Appearance Turbid 11/05/17 22:36 Urine pH 5.0 (5.0-8.0) 11/05/17 22:36 Ur Specific [place] 1.031 (1.001-1.035) 11/05/17 22:36 Urine Protein 1+ (NEGATIVE) H 11/05/17 22:36 Urine Glucose (UA) Negative (NEGATIVE) 11/05/17 22:36 Urine Ketones Negative (NEGATIVE) 11/05/17 22:36 Urine Blood Negative (NEGATIVE) 11/05/17 22:36 Urine Nitrite Negative (NEGATIVE) 11/05/17 22:36 Urine Bilirubin Negative (<2.0 mg/dL) 11/05/17 22:36 Urine Urobilinogen Negative mg/dL (0.2-1.0) 11/05/17 22:36 Ur Leukocyte Esterase Negative (NEGATIVE) 11/05/17 22:36 Urine WBC (Auto) 24 /hpf (3-5) 11/05/17 22:36 Urine RBC (Auto) 7 /hpf (0-3) 11/05/17 22:36 Ur Epithelial Cells Moderate /HPF (FEW) 11/05/17 22:36 Urine Bacteria Many /hpf (NONE SEEN) 11/05/17 22:36 Urine Mucus Moderate 11/05/17 22:36 LAB NOTED REPEAT UA Assessment: 11/06/17 11:29 WITHDRAWAL SX Plan: CONTINUE DETOX
--- NOTE | 2017-11-06 14:25 | EKG ---
Test Reason : Blood Pressure : / mmHG Vent. Rate : 089 BPM Atrial Rate : 089 BPM P-R Int : 170 ms QRS Dur : 096 ms QT Int : 340 ms P-R-T Axes : 062 084 045 degrees QTc Int : 413 ms NORMAL SINUS RHYTHM NORMAL ECG NO PREVIOUS ECGS AVAILABLE Confirmed by NISHA JAIMES MD ([id number]) on 11/06/2017 2:25:15 PM Referred By: Confirmed By:NISHA JAIMES MD
[2017-11-06] MEDS: NICOTINE POLACRILEX 2 MG GUM BC PRN ×2 (20:25→23:12)
[2017-11-06] MEDS ORDERED: QUEtiapine FUMARATE 100 MG TABLET (FP) PO SCH (22:00)
[2017-11-06] MEDS: THIAMINE HCL 100 MG TABLET (FP) PO SCH (22:23)
[2017-11-07] MEDS ORDERED: METHADONE HCL 5 MG TABLET (FOR DETOX USE ONLY) PO ONE (10:00)
[2017-11-07 10:12] LABS: URINE APPEARANCE CLEAR; URINE BILIRUBIN NEGATIVE (<2.0 mg/dL); URINE COLOR STRAW; URINE GLUCOSE (UA) NEGATIVE (NEGATIVE); URINE KETONE NEGATIVE (NEGATIVE); URINE LEUK ESTERASE NEGATIVE (NEGATIVE); URINE NITRITE NEGATIVE (NEGATIVE); URINE PROTEIN NEGATIVE (NEGATIVE); URINE UROBILINOGEN NEGATIVE mg/dL (0.2-1.0)
[2017-11-07] MEDS: NICOTINE 14 MG/24 HOURS TOPICAL PATCH TD SCH (10:49)
[2017-11-07] MEDS: PRENATAL VITAMINS W/ FOLIC ACID TABLET (FP) PO SCH (10:49)
[2017-11-07] MEDS: diazePAM 5 MG TABLET PO PRN ×2 (10:49→16:43)
--- NOTE | 2017-11-07 15:28 | PN ---
BHS COWS - Scale Resting Pulse: 0= [place] 80 or Below Sweatin= Chills/Flushing Restless Observation: 0= Sits Still Pupil Size: 0= Normal to Room Light Bone or Joint Aches: 1= Mild Discomfort Runny Nose/ Eye Tearin= Nasal Congestion GI Upset > 30mins: 1= Stomach Cramp Tremor Observation of Outstretched Hands: 0= None Yawning Observation: 0= None Anxiety or Irritability: 0= None Goose Flesh Skin: 0=Smooth Skin COWS Score: 4 BHS Progress Note (SOAP) Subjective: pt states tolerating detox well, no complaints toda Objective: 11/07/17 15:27 Vital Signs - 24 hr 11/06/17 11/06/17 11/07/17 18:54 22:55 00:30 Temperature 98.1 F 97.9 F Pulse Rate 86 84 Respiratory 18 18 18 Rate Blood Pressure 118/57 122/67 11/07/17 11/07/17 11/07/17 03:30 06:22 14:00 Temperature 97.3 F L 97.9 F Pulse Rate 72 80 Respiratory 18 18 18 Rate Blood Pressure 102/52 123/71 Laboratory Tests 11/05/17 11/06/17 11/06/17 22:36 07:30 07:30 WBC 5.7 RBC 4.27 Hgb 12.6 Hct 37.0 MCV 86.6 MCH 29.5 MCHC 34.1 RDW 13.9 Plt Count 290 MPV 8.3 Sodium 142 Potassium 4.2 Chloride 107 Carbon Dioxide 26 Anion Gap 9 BUN 12 Creatinine 0.7 Creat Clearance w eGFR > 60 Random Glucose 86 Calcium 8.9 Total Bilirubin 0.4 AST 11 L ALT 19 Alkaline Phosphatase 66 Total Protein 6.6 Albumin 3.4 Urine Color Yellow Urine Appearance Turbid Urine pH 5.0 Ur Specific [place] 1.031 Urine Protein 1+ H Urine Glucose (UA) Negative Urine Ketones Negative Urine Blood Negative Urine Nitrite Negative Urine Bilirubin Negative Urine Urobilinogen Negative Ur Leukocyte Esterase Negative Urine WBC (Auto) 24 Urine RBC (Auto) 7 Ur Epithelial Cells Moderate Urine Bacteria Many Urine Mucus Moderate RPR Titer 11/06/17 11/06/17 07:30 08:00 WBC RBC Hgb Hct MCV MCH MCHC RDW Plt Count MPV Sodium Potassium Chloride Carbon Dioxide Anion Gap BUN Creatinine Creat Clearance w eGFR Random Glucose Calcium Total Bilirubin AST ALT Alkaline Phosphatase Total Protein Albumin Urine Color Straw Urine Appearance Clear Urine pH 6.0 Ur Specific [place] 1.013 Urine Protein Negative Urine Glucose (UA) Negative Urine Ketones Negative Urine Blood Negative Urine Nitrite Negative Urine Bilirubin Negative Urine Urobilinogen Negative Ur Leukocyte Esterase Negative Urine WBC (Auto) Urine RBC (Auto) Ur Epithelial Cells Urine Bacteria Urine Mucus RPR Titer Nonreactive nl VS nl labs pt ambulatory Assessment: 11/07/17 15:28 opiate use disorder Plan: continue opiate detox
[2017-11-07 18:56] VITALS: BP 100/66; PULSE 70; TEMP 97.1
--- NOTE | 2017-11-07 19:31 | PN ---
[facility] Progress Note Note: Patient insisting on leaving AMA despite encouragement to remain. States I have Suboxone at home I can take. Discussed the fact that since receiving methadone, taking Suboxone would cause a severe withdrawal and be, not only physically painful, but could cause heart problems. Patient states she is aware and will wait 2 days before starting the Suboxone she has at home. Overdose risks and prevention discussed ad verbalizes an understanding. States has been through this several times before. Patient is alert and oriented. No withdrawal symptoms present at this time. Patient instructed t go to ER/call 911 if becomes ill.
--- NOTE | 2017-11-07 20:15 | DS ---
[facility] Detox Discharge Summary Admission Date: 11/05/17 Discharge Date: 11/07/17 (AMA) - History Present History: Opioid Dependence - Physical Exam Results Vital Signs: Vital Signs Temperature 97.1 F L 11/07/17 18:55 Pulse Rate 70 11/07/17 18:55 Respiratory Rate 16 11/07/17 18:55 Blood Pressure 100/66 11/07/17 18:55 O2 Sat by Pulse Oximetry (%) Pertinent Admission Physical Exam Findings: Patient was tolerating detox. Patient alert, oriented, and steady gait at time of leaving unit AMA. Laboratory Last Values WBC 5.7 K/mm3 (4.0-10.0) 11/06/17 07:30 RBC 4.27 M/mm3 (3.60-5.2) 11/06/17 07:30 Hgb 12.6 GM/dL (10.7-15.3) 11/06/17 07:30 Hct 37.0 % (32.4-45.2) 11/06/17 07:30 MCV 86.6 fl (80-96) 11/06/17 07:30 MCH 29.5 pg (25.7-33.7) 11/06/17 07:30 MCHC 34.1 g/dl (32.0-36.0) 11/06/17 07:30 RDW 13.9 % (11.6-15.6) 11/06/17 07:30 Plt Count 290 K/MM3 (134-434) 11/06/17 07:30 MPV 8.3 fl (7.5-11.1) 11/06/17 07:30 Sodium 142 mmol/L (136-145) 11/06/17 07:30 Potassium 4.2 mmol/L (3.5-5.1) 11/06/17 07:30 Chloride 107 mmol/L (98-107) 11/06/17 07:30 Carbon Dioxide 26 mmol/L (21-32) 11/06/17 07:30 Anion Gap 9 (8-16) 11/06/17 07:30 BUN 12 mg/dL (7-18) 11/06/17 07:30 Creatinine 0.7 mg/dL (0.55-1.02) 11/06/17 07:30 Creat Clearance w eGFR > 60 (>60) 11/06/17 07:30 Random Glucose 86 mg/dL (74-106) 11/06/17 07:30 Calcium 8.9 mg/dL (8.5-10.1) 11/06/17 07:30 Total Bilirubin 0.4 mg/dL (0.2-1.0) 11/06/17 07:30 AST 11 U/L (15-37) L 11/06/17 07:30 ALT 19 U/L (12-78) 11/06/17 07:30 Alkaline Phosphatase 66 U/L (45-117) 11/06/17 07:30 Total Protein 6.6 g/dl (6.4-8.2) 11/06/17 07:30 Albumin 3.4 g/dl (3.4-5.0) 11/06/17 07:30 Urine Color Straw 11/06/17 08:00 Urine Appearance Clear 11/06/17 08:00 Urine pH 6.0 (5.0-8.0) 11/06/17 08:00 Ur Specific [place] 1.013 (1.001-1.035) 11/06/17 08:00 Urine Protein Negative (NEGATIVE) 11/06/17 08:00 Urine Glucose (UA) Negative (NEGATIVE) 11/06/17 08:00 Urine Ketones Negative (NEGATIVE) 11/06/17 08:00 Urine Blood Negative (NEGATIVE) 11/06/17 08:00 Urine Nitrite Negative (NEGATIVE) 11/06/17 08:00 Urine Bilirubin Negative (<2.0 mg/dL) 11/06/17 08:00 Urine Urobilinogen Negative mg/dL (0.2-1.0) 11/06/17 08:00 Ur Leukocyte Esterase Negative (NEGATIVE) 11/06/17 08:00 Urine WBC (Auto) 24 /hpf (3-5) 11/05/17 22:36 Urine RBC (Auto) 7 /hpf (0-3) 11/05/17 22:36 Ur Epithelial Cells Moderate /HPF (FEW) 11/05/17 22:36 Urine Bacteria Many /hpf (NONE SEEN) 11/05/17 22:36 Urine Mucus Moderate 11/05/17 22:36 RPR Titer Nonreactive (NONREACTIVE) 11/06/17 07:30 Patient encouraged to follow-up w/ primary care provider and mental health provider as soon as possible. - Treatment Hospital Course: Detox Protocol Followed (Did not complete protocol.) - Medication Discharge Medications: Ambulatory Orders Quetiapine Fumarate [Seroquel] 100 mg PO HS #30 tablet 11/06/17 - Diagnosis (1) Nicotine dependence Status: Chronic Qualifiers: Nicotine product type: cigarettes Substance use status: in withdrawal Qualified Code(s): F17.213 - Nicotine dependence, cigarettes, with withdrawal (2) Uncomplicated opioid dependence Status: Acute - AMA Did Patient Leave Against Medical Advice: Yes
[2017-11-08] MEDS ORDERED: METHADONE HCL 5 MG TABLET (FOR DETOX USE ONLY) PO ONE (10:00)
[2017-11-09] MEDS ORDERED: METHADONE HCL 10 MG TABLET (FOR DETOX USE ONLY) PO ONE (10:00)
[2017-11-10] MEDS ORDERED: METHADONE HCL 5 MG TABLET (FOR DETOX USE ONLY) PO ONE (06:00)
== END 2017-11-07 19:02 | disposition left against medical advice (07) | DRG 770 ==
LOC: YASAS 11:58 → Y6N 16:17
PROVIDERS: ADMIT Surgery; ATTEND Surgery
PROC: HZ2ZZZZ Detoxification Services for Substance Abuse Treatment (ICD-10-PCS; principal; 2017-11-05)
DX: F11.23 Opioid dependence with withdrawal (principal); F17.213 Nicotine dependence, cigarettes, with withdrawal; F41.9 Anxiety disorder, unspecified; F11.282 Opioid dependence with opioid-induced sleep disorder; Z87.440 Personal history of urinary (tract) infections
CPT/HCPCS: 36415; 80053; 81003; 81015; 85027; 86593; 93005; 93010

== ENCOUNTER 2017-12-18 12:35 | Inpatient (IN) | payer OTHER ==
[2017-12-18 17:50] VITALS: BMI 27.1
--- NOTE | 2017-12-18 20:26 | HP ---
COWS - Scale Resting Pulse: 1= [place] 81-100 Sweatin= Chills/Flushing Restless Observation: 1= Difficult to Sit Still Pupil Size: 1= Pupils >than Normal Bone or Joint Aches: 1= Mild Discomfort Runny Nose/ Eye Tearin= Runny Nose/Eyes GI Upset > 30mins: 1= Stomach Cramp Tremor Observation: 1= Tremor [place], Not Seen Yawning Observation: 1= 1-2x During Session Anxiety or Irritability: 4=Extreme Anxiety Goose Flesh Skin: 3=[place]il[place] COWS Score: 17 Admission [facility] Chief Complaint: opioid withdrawal symptoms Allergies/Adverse Reactions: Allergies Allergy/AdvReac Type Severity Reaction Status Date / Time No Known Allergies Allergy Verified 12/18/17 18:47 History of Present Illness: 22 years old female with hx of nicotine and IV heroin dependence is here seeking detox. Denies marijuana use, reports use of CBC oil without THC. Reports was treated about a week ago at [facility] so sepsis. Denies hx of blackouts or seizures. Denies suicidal / homicidal ideation or hx of suicide attempts. Last detox [facility] 11/05/17 -11/07/17. Exam Limitations: No Limitations - Ebola screening Have you traveled outside of the country in the last 21 days: No Have you had contact with anyone from an Ebola affected area: No Have you been sick,other than usual withdrawal symptoms: No Do you have a fever: No - Review of Systems Constitutional: No Symptoms Reported, Unintentional Wgt. Loss EENT: reports: Nose Congestion Respiratory: reports: Cough (x 3 days) Cardiac: reports: Palpitations GI: reports: Poor Fluid Intake, Abdominal cramping : reports: No Symptoms Reported Musculoskeletal: reports: Back Pain, Joint Pain Integumentary: reports: Pruritus Neuro: reports: Dizziness Endocrine: reports: No Symptoms Reported Hematology: reports: No Symptoms Reported Psychiatric: reports: Orientated x3, Anxious Other Systems: Reviewed and Negative Patient History - Patient Medical History Hx Anemia: No Hx Asthma: No Hx Chronic Obstructive Pulmonary Disease (COPD): No Hx Cancer: No Hx Cardiac Disorders: No Hx Congestive Heart Failure: No Hx Hypertension: No Hx Hypercholesterolemia: No Hx Pacemaker: No HX Cerebrovascular Accident: No Hx Seizures: No Hx Dementia: No Hx Diabetes: No Hx Gastrointestinal Disorders: No Hx Liver Disease: No Hx Genitourinary Disorders: Yes (UTI tx one week ago ) Hx Sexually Transmitted Disorders: No Hx Renal Disease (ESRD): No Hx Thyroid Disease: No Hx Human Immunodeficiency Virus (HIV): No (Negative 2017) Hx Hepatitis C: No (Negative 2018) Hx Depression: Yes Hx Suicide Attempt: No (Denies suicide attempt and suicidal ideation at this time) Hx Bipolar Disorder: No Hx Schizophrenia: No Other Medical History: Anxiety - Patient Surgical History Past Surgical History: No Hx Neurologic Surgery: No Hx Cataract Extraction: No Hx Cardiac Surgery: No Hx Lung Surgery: No Hx Breast Surgery: No Hx Breast Biopsy: No Hx Abdominal Surgery: No Hx Appendectomy: No Hx Cholecystectomy: No Hx Genitourinary Surgery: No Hx Section: No Hx Orthopedic Surgery: No Anesthesia Reaction: No - PPD History Previous Implant?: Yes Documented Results: Negative w/proof Implanted On Prior [facility] Admission?: Yes Date: 09/26/17 Results: NEGATIVE PPD to be Administered?: No - Reproductive History Patient is a Female of Child Bearing Age (11 -55 yrs old): Yes Last Menstrual Period: 12/17/17 Patient : No - Smoking Cessation Smoking history: Current every day smoker Have you smoked in the past 12 months: Yes Aproximately how many cigarettes per day: 10 Hx Chewing Tobacco Use: No Initiated information on smoking cessation: Yes 'Breaking Loose' booklet given: 12/18/17 - Substance & Tx. History Hx Alcohol Use: Yes Hx Substance Use: Yes Substance Use Type: Heroin Hx Substance Use Treatment: Yes - Substances Abused Heroin Route: Injection Frequency: 3-6 times per week Amount used: 3 BAGS Age of first use: 19 Date of Last Use: 12/18/17 SUBOXONE Route: Oral Frequency: 3-6 times per week Amount used: 2 MG Age of first use: 22 Date of Last Use: 12/16/17 Family Disease History - Family Disease History Family Disease History: Other: Father (alive and well ), Mother (alive and well ) Other Family History: cousins x Substance Dependence Admission Physical Exam BHS - Vital Signs Vital Signs: Vital Signs - 24 hr 12/18/17 17:48 Temperature 98.3 F Pulse Rate 91 H Respiratory 18 Rate Blood Pressure 126/83 - Physical General Appearance: Yes: Nourished, Appropriately Dressed, Disheveled, Sweating , Anxious HEENTM: Yes: EOMI, Hearing grossly Normal, Normal ENT Inspection, Normocephalic , Normal Voice, DEYANIRA, Pharynx Normal, Tm's normal Respiratory: Yes: Chest Non-Tender, Lungs Clear, Normal Breath Sounds, No Respiratory Distress, No Accessory Muscle Use Neck: Yes: No masses,lesions,Nodules, Trachea in good position Breast: Yes: Breast Exam Deferred Cardiology: Yes: Regular Rhythm, Regular Rate Abdominal: Yes: Normal Bowel Sounds, Non Tender, Flat, Soft Genitourinary: Yes: Within Normal Limits Back: Yes: Normal Inspection Musculoskeletal: Yes: full range of Motion, Gait Steady, Pelvis Stable Extremities: Yes: Normal Capillary Refill, Normal Inspection, Normal Range of Motion, Non-Tender Neurological: Yes: utility assembler II-XII NML intact, Fully Oriented, Alert, Motor Strength 5/5, Normal Response, Depressed Affect Integumentary: Yes: Normal Color, Warm, Diaphoresis Lymphatic: Yes: Within Normal Limits - Diagnostic (1) Pruritus Current Visit: Yes Status: Acute (2) Nicotine dependence Current Visit: Yes Status: Chronic Qualifiers: Nicotine product type: cigarettes Substance use status: in withdrawal Qualified Code(s): F17.213 - Nicotine dependence, cigarettes, with withdrawal (3) Opioid dependence with withdrawal Current Visit: Yes Status: Chronic Cleared for Admission [facility] - Detox or Rehab [facility] Level of Care: Medically Managed Detox Regimen/Protocol: Methadone [facility] Breath Alcohol Content Breath Alcohol Content: 0 Urine Pregancy Test - Result Urine Test Results: Negative- NO Line Present Urine Drug Screen - Results Drug Screen Negative: No Urine Drug Screen Results: THC-Marijuana, OPI-Opiates
[2017-12-18] MEDS ORDERED: diphenhydrAMINE HCL 25 MG CAPSULE (FP) PO PRN (20:33)
[2017-12-18] MEDS ORDERED: ACETAMINOPHEN 325 MG TABLET (FP) PO PRN (20:38)
[2017-12-18] MEDS ORDERED: METHADONE HCL 10 MG TABLET (FOR DETOX USE ONLY) PO ONE ×2 (20:38→23:00)
[2017-12-18] MEDS ORDERED: MAG HYDROX/AL HYDROX/SIMETH 30 ML UNIT-DOSE CUP PO PRN (20:38)
[2017-12-18] MEDS ORDERED: MENTHOL/PHENOL 1 EACH UD MM PRN (20:38)
[2017-12-18] MEDS ORDERED: LOPERAMIDE HCL 2 MG CAPSULE PO PRN (20:38)
[2017-12-18] MEDS ORDERED: MAGNESIUM CITRATE 300 ML BOTTLE PO PRN (20:38)
[2017-12-18] MEDS ORDERED: P-EPHED 60MG/TRIPROLIDI 2.5MG TABLET PO PRN (20:38)
[2017-12-18] MEDS ORDERED: NICOTINE POLACRILEX 2 MG GUM BUC PRN (20:38)
[2017-12-18] MEDS ORDERED: MAGNESIUM HYDROX 2400MG/30ML ORAL SUSPENSION 30 ML CUP PO PRN (20:38)
[2017-12-18] MEDS: diazePAM 5 MG TABLET PO PRN (21:17)
[2017-12-18] MEDS: THIAMINE HCL 100 MG TABLET (FP) PO SCH (21:18)
[2017-12-18] MEDS: IBUPROFEN 400 MG TABLET (FP) PO PRN (21:53)
[2017-12-19 02:02] LABS: URINE APPEARANCE TURBID; URINE BILIRUBIN NEGATIVE (<2.0 mg/dL); URINE COLOR YELLOW; URINE GLUCOSE (UA) NEGATIVE (NEGATIVE); URINE KETONE NEGATIVE (NEGATIVE); URINE LEUK ESTERASE NEGATIVE (NEGATIVE); URINE NITRITE NEGATIVE (NEGATIVE); URINE PROTEIN NEGATIVE (NEGATIVE); URINE UROBILINOGEN NEGATIVE mg/dL (0.2-1.0)
[2017-12-19] MEDS ORDERED: METHADONE HCL 10 MG TABLET (FOR DETOX USE ONLY) PO ONE (10:00)
--- NOTE | 2017-12-19 10:28 | EKG ---
Test Reason : Blood Pressure : / mmHG Vent. Rate : 095 BPM Atrial Rate : 095 BPM P-R Int : 162 ms QRS Dur : 092 ms QT Int : 336 ms P-R-T Axes : 066 083 048 degrees QTc Int : 422 ms NORMAL SINUS RHYTHM NORMAL ECG WHEN COMPARED WITH ECG OF 05-NOV-2017 20:57, NO SIGNIFICANT CHANGE WAS FOUND Confirmed by KIMMIE LUJAN MD ([id number]) on 12/19/2017 10:28:06 AM Referred By: Confirmed By:KIMMIE LUJAN MD
[2017-12-19] MEDS: NICOTINE 14 MG/24 HOURS TOPICAL PATCH TD SCH (10:47)
[2017-12-19] MEDS: diazePAM 5 MG TABLET PO PRN ×4 (10:47→23:32)
[2017-12-19] MEDS: PRENATAL VITAMINS W/ FOLIC ACID TABLET (FP) PO SCH (10:47)
[2017-12-19 11:00] LABS: HEMATOCRIT 35.3 % (32.4-45.2); HEMOGLOBIN 11.7 GM/dL (10.7-15.3); MCH 29.1 pg (25.7-33.7); MCHC 33.2 g/dl (32.0-36.0); MEAN CELL VOLUME 87.5 fl (80-96); MEAN PLT VOLUME 8.8 fl (7.5-11.1); PLATELET COUNT 283 K/MM3 (134-434); RBC 4.03 M/mm3 (3.60-5.2); WHITE BLOOD COUNT 6.6 K/mm3 (4.0-10.0)
[2017-12-19 11:04] LABS: ALBUMIN 3.2 g/dl (3.4-5.0); ANION GAP 8 MMOL/L (8-16); BLOOD UREA NITROGEN 13 mg/dL (7-18); CALCIUM 8.3 mg/dL (8.5-10.1); CHLORIDE 108 mmol/L (98-107); CO2 24 mmol/L (21-32); GLUCOSE,RANDOM 86 mg/dL (74-106); POTASSIUM 4.2 mmol/L (3.5-5.1); SODIUM 140 mmol/L (136-145)
[2017-12-19 11:09] LABS: ALK PHOS 65 U/L (45-117); BILIRUBIN,TOTAL 0.2 mg/dL (0.2-1.0); CREATININE 0.6 mg/dL (0.55-1.02); SGOT/AST 9 U/L (15-37); SGPT/ALT 19 U/L (12-78); TOT PROT 6.6 g/dl (6.4-8.2)
--- NOTE | 2017-12-19 11:43 | PN ---
BHS COWS - Scale Resting Pulse: 0= [place] 80 or Below Sweatin= Chills/Flushing Restless Observation: 1= Difficult to Sit Still Pupil Size: 1= Pupils >than Normal Bone or Joint Aches: 2= Severe Diffuse Aches Runny Nose/ Eye Tearin= Nasal Congestion GI Upset > 30mins: 1= Stomach Cramp Tremor Observation of Outstretched Hands: 1= Tremor [place], Not Seen Yawning Observation: 0= None Anxiety or Irritability: 1=Feels Anxious/Irritable Goose Flesh Skin: 0=Smooth Skin COWS Score: 9 BHS Progress Note (SOAP) Subjective: interrupted sleep, sweats achy Objective: 12/19/17 11:42 Vital Signs Temperature 97.0 F L 12/19/17 06:00 Pulse Rate 77 12/19/17 06:00 Respiratory Rate 16 12/19/17 06:00 Blood Pressure 122/71 12/19/17 06:00 O2 Sat by Pulse Oximetry (%) Laboratory Tests 12/19/17 12/19/17 12/19/17 00:45 07:13 07:13 WBC 6.6 RBC 4.03 Hgb 11.7 Hct 35.3 MCV 87.5 MCH 29.1 MCHC 33.2 RDW 14.0 Plt Count 283 MPV 8.8 Sodium 140 Potassium 4.2 Chloride 108 H Carbon Dioxide 24 Anion Gap 8 BUN 13 Creatinine 0.6 Creat Clearance w eGFR > 60 Random Glucose 86 Calcium 8.3 L Total Bilirubin 0.2 AST 9 L ALT 19 Alkaline Phosphatase 65 Total Protein 6.6 Albumin 3.2 L Urine Color Yellow Urine Appearance Turbid Urine pH 5.0 Ur Specific [place] 1.026 Urine Protein Negative Urine Glucose (UA) Negative Urine Ketones Negative Urine Blood Negative Urine Nitrite Negative Urine Bilirubin Negative Urine Urobilinogen Negative Ur Leukocyte Esterase Negative pt aox3 in nad lying in bed Assessment: 12/19/17 11:42 withdrawal sx's Plan: cont detox increase fluids motrin prn
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
[2017-12-19] MEDS: guaiFENesin/D-METHORPHAN HB 10 ML UNIT-DOSE CUPS PO PRN (15:05)
[2017-12-19] MEDS: hydrOXYzine PAMOATE 50 MG CAPSULE (FP) PO PRN (22:11)
[2017-12-19] MEDS: IBUPROFEN 400 MG TABLET (FP) PO PRN (22:11)
[2017-12-19] MEDS: THIAMINE HCL 100 MG TABLET (FP) PO SCH (22:11)
[2017-12-19] MEDS: MELATONIN 5 MG TABLETS PO PRN (22:11)
[2017-12-20] MEDS ORDERED: METHADONE HCL 5 MG TABLET (FOR DETOX USE ONLY) PO ONE (10:00)
[2017-12-20] MEDS: PRENATAL VITAMINS W/ FOLIC ACID TABLET (FP) PO SCH (10:38)
[2017-12-20] MEDS: diazePAM 5 MG TABLET PO PRN ×3 (10:39→20:28)
[2017-12-20] MEDS: NICOTINE 14 MG/24 HOURS TOPICAL PATCH TD SCH (10:39)
--- NOTE | 2017-12-20 11:16 | PN ---
BHS COWS - Scale Resting Pulse: 0= [place] 80 or Below Sweatin= Chills/Flushing Restless Observation: 1= Difficult to Sit Still Pupil Size: 1= Pupils >than Normal Bone or Joint Aches: 1= Mild Discomfort Runny Nose/ Eye Tearin= Nasal Congestion GI Upset > 30mins: 1= Stomach Cramp Tremor Observation of Outstretched Hands: 1= Tremor [place], Not Seen Yawning Observation: 1= 1-2x During Session Anxiety or Irritability: 1=Feels Anxious/Irritable Goose Flesh Skin: 0=Smooth Skin COWS Score: 9 BHS Progress Note (SOAP) Subjective: body aches mild GI distress sweat tremor anxiety Objective: 12/20/17 11:18 Vital Signs Temperature 99.3 F 12/20/17 09:26 Pulse Rate 79 12/20/17 09:26 Respiratory Rate 18 12/20/17 09:26 Blood Pressure 116/68 12/20/17 09:26 O2 Sat by Pulse Oximetry (%) Laboratory Last Values WBC 6.6 K/mm3 (4.0-10.0) 12/19/17 07:13 RBC 4.03 M/mm3 (3.60-5.2) 12/19/17 07:13 Hgb 11.7 GM/dL (10.7-15.3) 12/19/17 07:13 Hct 35.3 % (32.4-45.2) 12/19/17 07:13 MCV 87.5 fl (80-96) 12/19/17 07:13 MCH 29.1 pg (25.7-33.7) 12/19/17 07:13 MCHC 33.2 g/dl (32.0-36.0) 12/19/17 07:13 RDW 14.0 % (11.6-15.6) 12/19/17 07:13 Plt Count 283 K/MM3 (134-434) 12/19/17 07:13 MPV 8.8 fl (7.5-11.1) 12/19/17 07:13 Sodium 140 mmol/L (136-145) 12/19/17 07:13 Potassium 4.2 mmol/L (3.5-5.1) 12/19/17 07:13 Chloride 108 mmol/L (98-107) H 12/19/17 07:13 Carbon Dioxide 24 mmol/L (21-32) 12/19/17 07:13 Anion Gap 8 MMOL/L (8-16) 12/19/17 07:13 BUN 13 mg/dL (7-18) 12/19/17 07:13 Creatinine 0.6 mg/dL (0.55-1.02) 12/19/17 07:13 Creat Clearance w eGFR > 60 (>60) 12/19/17 07:13 Random Glucose 86 mg/dL (74-106) 12/19/17 07:13 Calcium 8.3 mg/dL (8.5-10.1) L 12/19/17 07:13 Total Bilirubin 0.2 mg/dL (0.2-1.0) 12/19/17 07:13 AST 9 U/L (15-37) L 12/19/17 07:13 ALT 19 U/L (12-78) 12/19/17 07:13 Alkaline Phosphatase 65 U/L (45-117) 12/19/17 07:13 Total Protein 6.6 g/dl (6.4-8.2) 12/19/17 07:13 Albumin 3.2 g/dl (3.4-5.0) L 12/19/17 07:13 Urine Color Yellow 12/19/17 00:45 Urine Appearance Turbid 12/19/17 00:45 Urine pH 5.0 (5.0-8.0) 12/19/17 00:45 Ur Specific [place] 1.026 (1.001-1.035) 12/19/17 00:45 Urine Protein Negative (NEGATIVE) 12/19/17 00:45 Urine Glucose (UA) Negative (NEGATIVE) 12/19/17 00:45 Urine Ketones Negative (NEGATIVE) 12/19/17 00:45 Urine Blood Negative (NEGATIVE) 12/19/17 00:45 Urine Nitrite Negative (NEGATIVE) 12/19/17 00:45 Urine Bilirubin Negative (<2.0 mg/dL) 12/19/17 00:45 Urine Urobilinogen Negative mg/dL (0.2-1.0) 12/19/17 00:45 Ur Leukocyte Esterase Negative (NEGATIVE) 12/19/17 00:45 RPR Titer Nonreactive (NONREACTIVE) 12/19/17 07:13 lab noted Assessment: 12/20/17 11:19 opiate withdrawal sx Plan: continue opiate detox
[2017-12-20] MEDS: NICOTINE 21 MG/24 HOURS TOPICAL PATCH TD SCH (12:37)
[2017-12-20] MEDS: THIAMINE HCL 100 MG TABLET (FP) PO SCH (22:40)
[2017-12-20] MEDS: MELATONIN 5 MG TABLETS PO PRN (22:41)
[2017-12-20] MEDS: hydrOXYzine PAMOATE 50 MG CAPSULE (FP) PO PRN (22:43)
[2017-12-21] MEDS: diazePAM 5 MG TABLET PO PRN ×4 (05:42→18:14)
[2017-12-21] MEDS: PRENATAL VITAMINS W/ FOLIC ACID TABLET (FP) PO SCH (09:53)
[2017-12-21] MEDS: NICOTINE 21 MG/24 HOURS TOPICAL PATCH TD SCH (09:54)
[2017-12-21] MEDS ORDERED: METHADONE HCL 5 MG TABLET (FOR DETOX USE ONLY) PO ONE (10:00)
--- NOTE | 2017-12-21 12:28 | PN ---
[facility]HS Progress Note (SOAP) Subjective: joints pain tremor sweat trouble sleep at night Objective: 12/21/17 12:26 Vital Signs Temperature 97.9 F 12/21/17 09:38 Pulse Rate 83 12/21/17 09:38 Respiratory Rate 16 12/21/17 09:38 Blood Pressure 127/68 12/21/17 09:38 O2 Sat by Pulse Oximetry (%) Laboratory Last Values WBC 6.6 K/mm3 (4.0-10.0) 12/19/17 07:13 RBC 4.03 M/mm3 (3.60-5.2) 12/19/17 07:13 Hgb 11.7 GM/dL (10.7-15.3) 12/19/17 07:13 Hct 35.3 % (32.4-45.2) 12/19/17 07:13 MCV 87.5 fl (80-96) 12/19/17 07:13 MCH 29.1 pg (25.7-33.7) 12/19/17 07:13 MCHC 33.2 g/dl (32.0-36.0) 12/19/17 07:13 RDW 14.0 % (11.6-15.6) 12/19/17 07:13 Plt Count 283 K/MM3 (134-434) 12/19/17 07:13 MPV 8.8 fl (7.5-11.1) 12/19/17 07:13 Sodium 140 mmol/L (136-145) 12/19/17 07:13 Potassium 4.2 mmol/L (3.5-5.1) 12/19/17 07:13 Chloride 108 mmol/L (98-107) H 12/19/17 07:13 Carbon Dioxide 24 mmol/L (21-32) 12/19/17 07:13 Anion Gap 8 MMOL/L (8-16) 12/19/17 07:13 BUN 13 mg/dL (7-18) 12/19/17 07:13 Creatinine 0.6 mg/dL (0.55-1.02) 12/19/17 07:13 Creat Clearance w eGFR > 60 (>60) 12/19/17 07:13 Random Glucose 86 mg/dL (74-106) 12/19/17 07:13 Calcium 8.3 mg/dL (8.5-10.1) L 12/19/17 07:13 Total Bilirubin 0.2 mg/dL (0.2-1.0) 12/19/17 07:13 AST 9 U/L (15-37) L 12/19/17 07:13 ALT 19 U/L (12-78) 12/19/17 07:13 Alkaline Phosphatase 65 U/L (45-117) 12/19/17 07:13 Total Protein 6.6 g/dl (6.4-8.2) 12/19/17 07:13 Albumin 3.2 g/dl (3.4-5.0) L 12/19/17 07:13 Urine Color Yellow 12/19/17 00:45 Urine Appearance Turbid 12/19/17 00:45 Urine pH 5.0 (5.0-8.0) 12/19/17 00:45 Ur Specific [place] 1.026 (1.001-1.035) 12/19/17 00:45 Urine Protein Negative (NEGATIVE) 12/19/17 00:45 Urine Glucose (UA) Negative (NEGATIVE) 12/19/17 00:45 Urine Ketones Negative (NEGATIVE) 12/19/17 00:45 Urine Blood Negative (NEGATIVE) 12/19/17 00:45 Urine Nitrite Negative (NEGATIVE) 12/19/17 00:45 Urine Bilirubin Negative (<2.0 mg/dL) 12/19/17 00:45 Urine Urobilinogen Negative mg/dL (0.2-1.0) 12/19/17 00:45 Ur Leukocyte Esterase Negative (NEGATIVE) 12/19/17 00:45 RPR Titer Nonreactive (NONREACTIVE) 12/19/17 07:13 lab noted Assessment: 12/21/17 12:27 withdrawal sx Plan: continue detox
[2017-12-21] MEDS: guaiFENesin/D-METHORPHAN HB 10 ML UNIT-DOSE CUPS PO PRN (16:08)
[2017-12-21] MEDS: THIAMINE HCL 100 MG TABLET (FP) PO SCH (22:16)
[2017-12-21] MEDS: MELATONIN 5 MG TABLETS PO PRN (22:17)
[2017-12-21] MEDS: hydrOXYzine PAMOATE 50 MG CAPSULE (FP) PO PRN (22:45)
[2017-12-22] MEDS: hydrOXYzine PAMOATE 50 MG CAPSULE (FP) PO PRN ×3 (09:58→22:11)
[2017-12-22] MEDS: NICOTINE 21 MG/24 HOURS TOPICAL PATCH TD SCH (09:58)
[2017-12-22] MEDS: PRENATAL VITAMINS W/ FOLIC ACID TABLET (FP) PO SCH (09:58)
[2017-12-22] MEDS ORDERED: METHADONE HCL 10 MG TABLET (FOR DETOX USE ONLY) PO ONE (10:00)
[2017-12-22] MEDS: guaiFENesin/D-METHORPHAN HB 10 ML UNIT-DOSE CUPS PO PRN (10:10)
--- NOTE | 2017-12-22 11:49 | PN ---
BHS Progress Note (SOAP) Subjective: feeling better social in day room with peers less body ache no tremor sleep better at night Objective: 12/22/17 11:50 Vital Signs Temperature 97.9 F 12/22/17 09:30 Pulse Rate 82 12/22/17 09:30 Respiratory Rate 16 12/22/17 09:30 Blood Pressure 122/66 12/22/17 09:30 O2 Sat by Pulse Oximetry (%) Laboratory Last Values WBC 6.6 K/mm3 (4.0-10.0) 12/19/17 07:13 RBC 4.03 M/mm3 (3.60-5.2) 12/19/17 07:13 Hgb 11.7 GM/dL (10.7-15.3) 12/19/17 07:13 Hct 35.3 % (32.4-45.2) 12/19/17 07:13 MCV 87.5 fl (80-96) 12/19/17 07:13 MCH 29.1 pg (25.7-33.7) 12/19/17 07:13 MCHC 33.2 g/dl (32.0-36.0) 12/19/17 07:13 RDW 14.0 % (11.6-15.6) 12/19/17 07:13 Plt Count 283 K/MM3 (134-434) 12/19/17 07:13 MPV 8.8 fl (7.5-11.1) 12/19/17 07:13 Sodium 140 mmol/L (136-145) 12/19/17 07:13 Potassium 4.2 mmol/L (3.5-5.1) 12/19/17 07:13 Chloride 108 mmol/L (98-107) H 12/19/17 07:13 Carbon Dioxide 24 mmol/L (21-32) 12/19/17 07:13 Anion Gap 8 MMOL/L (8-16) 12/19/17 07:13 BUN 13 mg/dL (7-18) 12/19/17 07:13 Creatinine 0.6 mg/dL (0.55-1.02) 12/19/17 07:13 Creat Clearance w eGFR > 60 (>60) 12/19/17 07:13 Random Glucose 86 mg/dL (74-106) 12/19/17 07:13 Calcium 8.3 mg/dL (8.5-10.1) L 12/19/17 07:13 Total Bilirubin 0.2 mg/dL (0.2-1.0) 12/19/17 07:13 AST 9 U/L (15-37) L 12/19/17 07:13 ALT 19 U/L (12-78) 12/19/17 07:13 Alkaline Phosphatase 65 U/L (45-117) 12/19/17 07:13 Total Protein 6.6 g/dl (6.4-8.2) 12/19/17 07:13 Albumin 3.2 g/dl (3.4-5.0) L 12/19/17 07:13 Urine Color Yellow 12/19/17 00:45 Urine Appearance Turbid 12/19/17 00:45 Urine pH 5.0 (5.0-8.0) 12/19/17 00:45 Ur Specific [place] 1.026 (1.001-1.035) 12/19/17 00:45 Urine Protein Negative (NEGATIVE) 12/19/17 00:45 Urine Glucose (UA) Negative (NEGATIVE) 12/19/17 00:45 Urine Ketones Negative (NEGATIVE) 12/19/17 00:45 Urine Blood Negative (NEGATIVE) 12/19/17 00:45 Urine Nitrite Negative (NEGATIVE) 12/19/17 00:45 Urine Bilirubin Negative (<2.0 mg/dL) 12/19/17 00:45 Urine Urobilinogen Negative mg/dL (0.2-1.0) 12/19/17 00:45 Ur Leukocyte Esterase Negative (NEGATIVE) 12/19/17 00:45 RPR Titer Nonreactive (NONREACTIVE) 12/19/17 07:13 lab noted Assessment: 12/22/17 11:51 mild withdrawal sx Plan: medically supervised detox
[2017-12-22] MEDS: THIAMINE HCL 100 MG TABLET (FP) PO SCH (22:10)
[2017-12-22] MEDS: IBUPROFEN 400 MG TABLET (FP) PO PRN (22:10)
[2017-12-22] MEDS: MELATONIN 5 MG TABLETS PO PRN (22:10)
[2017-12-23] MEDS ORDERED: METHADONE HCL 5 MG TABLET (FOR DETOX USE ONLY) PO ONE (06:00)
[2017-12-23] MEDS: hydrOXYzine PAMOATE 50 MG CAPSULE (FP) PO PRN (07:09)
[2017-12-23 07:42] VITALS: TEMP 98.1
[2017-12-23 09:57] VITALS: BP 133/83; PULSE 90
[2017-12-23] MEDS: PRENATAL VITAMINS W/ FOLIC ACID TABLET (FP) PO SCH (11:21)
[2017-12-23] MEDS: NICOTINE 21 MG/24 HOURS TOPICAL PATCH TD SCH (11:21)
--- NOTE | 2017-12-23 11:35 | DS ---
[facility] Detox Discharge Summary Admission Date: 12/18/17 Discharge Date: 12/23/17 - History Present History: Opioid Dependence Additional Comments: 22 YEARS OLD FEMALE ADMITTED ON 12/18/17 FOR OPIATE WITHDRAWAL SX COMPLETED OPIATE DETOX REGIMEN TOLERATED WELL DENIES OPIATE WITHDRAWAL SX ALERT ORIENTED X 3 NO ACUTE DISTRESS AFTERCARE REVELATION - Physical Exam Results Vital Signs: Vital Signs Temperature 98.1 F 12/23/17 09:57 Pulse Rate 90 12/23/17 09:57 Respiratory Rate 16 12/23/17 09:57 Blood Pressure 133/83 12/23/17 09:57 O2 Sat by Pulse Oximetry (%) Pertinent Admission Physical Exam Findings: OPIATE WITHDRAWAL SX Vital Signs Temperature 98.1 F 12/23/17 09:57 Pulse Rate 90 12/23/17 09:57 Respiratory Rate 16 12/23/17 09:57 Blood Pressure 133/83 12/23/17 09:57 O2 Sat by Pulse Oximetry (%) Laboratory Last Values WBC 6.6 K/mm3 (4.0-10.0) 12/19/17 07:13 RBC 4.03 M/mm3 (3.60-5.2) 12/19/17 07:13 Hgb 11.7 GM/dL (10.7-15.3) 12/19/17 07:13 Hct 35.3 % (32.4-45.2) 12/19/17 07:13 MCV 87.5 fl (80-96) 12/19/17 07:13 MCH 29.1 pg (25.7-33.7) 12/19/17 07:13 MCHC 33.2 g/dl (32.0-36.0) 12/19/17 07:13 RDW 14.0 % (11.6-15.6) 12/19/17 07:13 Plt Count 283 K/MM3 (134-434) 12/19/17 07:13 MPV 8.8 fl (7.5-11.1) 12/19/17 07:13 Sodium 140 mmol/L (136-145) 12/19/17 07:13 Potassium 4.2 mmol/L (3.5-5.1) 12/19/17 07:13 Chloride 108 mmol/L (98-107) H 12/19/17 07:13 Carbon Dioxide 24 mmol/L (21-32) 12/19/17 07:13 Anion Gap 8 MMOL/L (8-16) 12/19/17 07:13 BUN 13 mg/dL (7-18) 12/19/17 07:13 Creatinine 0.6 mg/dL (0.55-1.02) 12/19/17 07:13 Creat Clearance w eGFR > 60 (>60) 12/19/17 07:13 Random Glucose 86 mg/dL (74-106) 12/19/17 07:13 Calcium 8.3 mg/dL (8.5-10.1) L 12/19/17 07:13 Total Bilirubin 0.2 mg/dL (0.2-1.0) 12/19/17 07:13 AST 9 U/L (15-37) L 12/19/17 07:13 ALT 19 U/L (12-78) 12/19/17 07:13 Alkaline Phosphatase 65 U/L (45-117) 12/19/17 07:13 Total Protein 6.6 g/dl (6.4-8.2) 12/19/17 07:13 Albumin 3.2 g/dl (3.4-5.0) L 12/19/17 07:13 Urine Color Yellow 12/19/17 00:45 Urine Appearance Turbid 12/19/17 00:45 Urine pH 5.0 (5.0-8.0) 12/19/17 00:45 Ur Specific [place] 1.026 (1.001-1.035) 12/19/17 00:45 Urine Protein Negative (NEGATIVE) 12/19/17 00:45 Urine Glucose (UA) Negative (NEGATIVE) 12/19/17 00:45 Urine Ketones Negative (NEGATIVE) 12/19/17 00:45 Urine Blood Negative (NEGATIVE) 12/19/17 00:45 Urine Nitrite Negative (NEGATIVE) 12/19/17 00:45 Urine Bilirubin Negative (<2.0 mg/dL) 12/19/17 00:45 Urine Urobilinogen Negative mg/dL (0.2-1.0) 12/19/17 00:45 Ur Leukocyte Esterase Negative (NEGATIVE) 12/19/17 00:45 RPR Titer Nonreactive (NONREACTIVE) 12/19/17 07:13 LAB NOTED - Treatment Hospital Course: Detox Protocol Followed, Detoxed Safely, Responded well, Discharged Condition Good, Rehab Referral Accepted Patient has Accepted a Rehab Referral to: [facility] - Medication Discharge Medications: Ambulatory Orders NK [No Known Home Medication] 12/18/17 - Diagnosis (1) Opioid dependence with withdrawal Current Visit: Yes Status: Acute (2) Nicotine dependence Current Visit: Yes Status: Acute Qualifiers: Nicotine product type: cigarettes Substance use status: in withdrawal Qualified Code(s): F17.213 - Nicotine dependence, cigarettes, with withdrawal - AMA Did Patient Leave Against Medical Advice: No
== END 2017-12-23 09:30 | disposition home or self-care (01) | DRG 773 ==
LOC: YASAS 12:35 → Y6N 20:35
PROC: HZ2ZZZZ Detoxification Services for Substance Abuse Treatment (ICD-10-PCS; principal; 2017-12-18)
DX: F11.23 Opioid dependence with withdrawal (principal); F17.213 Nicotine dependence, cigarettes, with withdrawal; F90.9 Attention-deficit hyperactivity disorder, unspecified type; F41.9 Anxiety disorder, unspecified; F32.9 Major depressive disorder, single episode, unspecified; L29.8 Other pruritus; Z87.440 Personal history of urinary (tract) infections
CPT/HCPCS: 36415; 80053; 81003; 85027; 86593; 93005; 93010

== ENCOUNTER 2018-01-29 14:41 | Emergency (ER) | payer OTHER ==
[2018-01-29 15:01] VITALS: BP 114/68; PULSE 97; TEMP 98.6; BMI 26.6
--- NOTE | 2018-01-29 15:03 | PDOC ---
Rapid Medical Evaluation Time Seen by Provider: 01/29/18 14:54 Medical Evaluation: Allergies Allergy/AdvReac Type Severity Reaction Status Date / Time No Known Allergies Allergy Verified 12/18/17 18:47 01/29/18 14:54 The patient complaints of: twitching of left leg x 1 hour , no injury, currently on heroin, pt states hx of the same normally relieved with mag spray but did not take today, pt states has been eating normally On brief exam: from of LLE, no skin discoloration, 5+ strength, no fasiculation noted, The patient was ordered for: cbc, comp, mag The patient will proceed to the ED Discharge Disposition - Diagnosis Muscle twitching - Discharge Dispostion Disposition: HOME Condition at time of disposition: Improved - Referrals - Patient Instructions Additional Instructions: follow with your medical doctor for follow up return if any worsening symptoms - Post Discharge Activity
[2018-01-29 15:26] LABS: BASO % 0.2 % (0-2.0); EOS % 0.3 % (0-4.5); HEMATOCRIT 37.9 % (32.4-45.2); HEMOGLOBIN 12.5 GM/dL (10.7-15.3); LYMPH % 9.1 % (8-40); MCH 29.2 pg (25.7-33.7); MCHC 32.9 g/dl (32.0-36.0); MEAN CELL VOLUME 88.7 fl (80-96); MEAN PLT VOLUME 8.1 fl (7.5-11.1); MONO % 7.3 % (3.8-10.2); NEUT % 83.1 % (42.8-82.8); PLATELET COUNT 288 K/MM3 (134-434); RBC 4.27 M/mm3 (3.60-5.2); RDW 14.1 % (11.6-15.6); WHITE BLOOD COUNT 10.8 K/mm3 (4.0-10.0)
[2018-01-29 15:48] LABS: ALBUMIN 3.6 g/dl (3.4-5.0); ALK PHOS 80 U/L (45-117); ANION GAP 6 MMOL/L (8-16); BILIRUBIN,TOTAL 0.4 mg/dL (0.2-1); BLOOD UREA NITROGEN 12 mg/dL (7-18); CHLORIDE 104 mmol/L (98-107); CO2 28 mmol/L (21-32); CREATININE 0.8 mg/dL (0.55-1.3); GLUCOSE,RANDOM 94 mg/dL (74-106); MAGNESIUM 1.9 mg/dL (1.8-2.4); POTASSIUM 4.1 mmol/L (3.5-5.1); SGOT/AST 14 U/L (15-37); SGPT/ALT 19 U/L (13-61); SODIUM 138 mmol/L (136-145); TOT PROT 7.5 g/dl (6.4-8.2)
--- NOTE | 2018-01-29 16:27 | PDOC ---
History of Present Illness - General Chief Complaint: Muscle Cramping Stated Complaint: LEFT LEG PAIN Time Seen by Provider: 01/29/18 14:54 History Source: Patient Exam Limitations: No Limitations - History of Present Illness Initial Comments: 01/29/18 16:25 22 yr female with c/o left leg muscle cramping one hour ago while climbing steps. pt states symptoms have resolved. Past History - Past Medical History Allergies/Adverse Reactions: Allergies Allergy/AdvReac Type Severity Reaction Status Date / Time No Known Allergies Allergy Verified 01/29/18 14:55 Home Medications: Ambulatory Orders NK [No Known Home Medication] 12/18/17 Anemia: No Asthma: No Cancer: No Cardiac Disorders: No CVA: No COPD: No CHF: No Dementia: No Diabetes: No GI Disorders: No Disorders: Yes (UTI tx one week ago ) HTN: No Hypercholesterolemia: No Kidney Stones: No Liver Disease: No Seizures: No Thyroid Disease: No - Surgical History Abdominal Surgery: No Appendectomy: No Cardiac Surgery: No Cholecystectomy: No Lung Surgery: No Neurologic Surgery: No Orthopedic Surgery: No - Reproductive History PID: No - Immunization History Immunization Up to Date: Yes - Suicide/Smoking/Psychosocial Hx Smoking Status: No Smoking History: Current every day smoker Have you smoked in the past 12 months: Yes Number of Cigarettes Smoked Daily: 10 Information on smoking cessation initiated: No 'Breaking Loose' booklet given: 12/18/17 Hx Alcohol Use: Yes Drug/Substance Use Hx: Yes Substance Use Type: Heroin Hx Substance Use Treatment: Yes Review of Systems - Review of Systems Able to Perform ROS?: Yes Is the patient limited Divehi proficient: No Constitutional: No: Symptoms Reported HEENTM: No: Symptoms Reported Respiratory: No: Symptoms reported Cardiac (ROS): No: Symptoms Reported ABD/GI: No: Symptoms Reported : No: Symptoms Reported Musculoskeletal: Yes: Symptoms Reported, Muscle Pain (left thigh ) *Physical Exam - Vital Signs Last Vital Signs Temp Pulse Resp BP Pulse Ox 98.6 F 97 H 18 114/68 99 01/29/18 14:55 01/29/18 14:55 01/29/18 14:55 01/29/18 14:55 01/29/18 14:55 - Physical Exam General Appearance: Yes: Nourished, Appropriately Dressed HEENT: positive: EOMI, DEYANIRA, TMs Normal, Pharynx Normal Neck: positive: Supple. negative: Tender Respiratory/Chest: positive: Lungs Clear, Normal Breath Sounds. negative: Chest Tender Cardiovascular: positive: Regular Rhythm, Regular Rate Gastrointestinal/Abdominal: positive: Normal Bowel Sounds, Soft Musculoskeletal: positive: Normal Inspection Extremity: positive: Normal Capillary Refill, Normal Inspection, Normal Range of Motion. 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 negative: Numbness , Sensory Deficit ED Treatment Course - LABORATORY CBC & Chemistry Diagram: 01/29/18 15:11 01/29/18 15:11 - ADDITIONAL ORDERS Additional order review: Laboratory Results 01/29/18 15:11 Sodium 138 Potassium 4.1 Chloride 104 Carbon Dioxide 28 Anion Gap 6 L BUN 12 Creatinine 0.8 Creat Clearance w eGFR > 60 Random Glucose 94 Calcium 9.0 Magnesium 1.9 Total Bilirubin 0.4 AST 14 L ALT 19 Alkaline Phosphatase 80 Total Protein 7.5 Albumin 3.6 01/29/18 15:11 RBC 4.27 MCV 88.7 MCHC 32.9 RDW 14.1 MPV 8.1 Neutrophils % 83.1 H Lymphocytes % 9.1 Monocytes % 7.3 Eosinophils % 0.3 Basophils % 0.2 Medical Decision Making - Medical Decision Making 01/29/18 18:39 cc: left leg muscle twitching today after climbing up a steep step pt states on arrival to ER the twitch stopped pt admits to using heroin 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 pt has no twitch , no pain , no swelling has clear speech is stable for discharge. *DC/Admit/Observation/Transfer Diagnosis at time of Disposition: Muscle twitching - Discharge Dispostion Disposition: HOME Condition at time of disposition: Improved - Referrals - Patient Instructions Additional Instructions: follow with your medical doctor for follow up return if any worsening symptoms - Post Discharge Activity
== END 2018-01-29 16:28 | disposition home or self-care (01) ==
LOC: JERFT 14:41
DX: R25.3 Fasciculation (principal); F11.10 Opioid abuse, uncomplicated
CPT/HCPCS: 36415; 80053; 83735; 85025; 99281-25

== ENCOUNTER 2018-01-31 09:55 | Inpatient (IN) | payer OTHER ==
[2018-01-31 10:37] VITALS: BMI 27.8
--- NOTE | 2018-01-31 11:20 | HP ---
COWS - Scale Resting Pulse: 2= [place] 101-120 Sweatin= Chills/Flushing Restless Observation: 1= Difficult to Sit Still Pupil Size: 2= Moderately Dilated Bone or Joint Aches: 0= None Runny Nose/ Eye Tearin= None GI Upset > 30mins: 1= Stomach Cramp Tremor Observation: 0= None Yawning Observation: 0= None Anxiety or Irritability: 2=Irritable/Anxious Goose Flesh Skin: 0=Smooth Skin COWS Score: 9 Admission ROS S - HPI Allergies/Adverse Reactions: Allergies Allergy/AdvReac Type Severity Reaction Status Date / Time No Known Allergies Allergy Verified 01/31/18 10:54 History of Present Illness: pt here requesting detox from heroin use, reports use of heroin amount " depends how much money I get that day " , reports 3 bags ivdu daily, max 10 bags, first age of use 19 , sober x 6 mo while in [facility] , latest use this morning , IVDU carter UE , needles from the pharmacy , denies sharing, + re- using, had sepsis 2 no ago had sepsis was on abx x 3 days .States she stopped re-using needles after that . Trying to go to [facility] , has interview 02/09 .Pt reluctant to answer questions, irritable : " I answered all these questions already !" Pmhx :denies pshx : denies meds : denies psych : denies tobacco : 1/2 ppd , requesting nrt w/ patch and gum upt neg [place] 0.000 utox + thc, MOP, Benzo pt denies use of cannabis or sedatives , when questioned about use she became very agitated " there is something wrong with your test , I don't use that " - Ebola screening Have you been sick,other than usual withdrawal symptoms: No - Review of Systems Constitutional: See HPI EENT: reports: No Symptoms Reported Respiratory: reports: No Symptoms reported Cardiac: reports: No Symptoms Reported GI: reports: See HPI, Other : reports: No Symptoms Reported Musculoskeletal: reports: No Symptoms Reported Integumentary: reports: No Symptoms Reported Neuro: reports: No Symptoms reported Endocrine: reports: No Symptoms Reported Hematology: reports: No Symptoms Reported Psychiatric: reports: No Sypmtoms Reported, Orientated x3, Agitated, Anxious Patient History - Patient Medical History Hx Anemia: No Hx Asthma: No Hx Chronic Obstructive Pulmonary Disease (COPD): No Hx Cancer: No Hx Cardiac Disorders: No Hx Congestive Heart Failure: No Hx Hypertension: No Hx Hypercholesterolemia: No Hx Pacemaker: No HX Cerebrovascular Accident: No Hx Seizures: No Hx Dementia: No Hx Diabetes: No Hx Gastrointestinal Disorders: No Hx Liver Disease: No Hx Genitourinary Disorders: No Hx Sexually Transmitted Disorders: No Hx Renal Disease (ESRD): No Hx Thyroid Disease: No Hx Human Immunodeficiency Virus (HIV): No (Negative 2018) Hx Hepatitis C: No (Negative 2018) Hx Depression: No Hx Suicide Attempt: No Hx Bipolar Disorder: No Hx Schizophrenia: No - Patient Surgical History Past Surgical History: No Hx Neurologic Surgery: No Hx Cataract Extraction: No Hx Cardiac Surgery: No Hx Lung Surgery: No Hx Breast Surgery: No Hx Breast Biopsy: No Hx Abdominal Surgery: No Hx Appendectomy: No Hx Cholecystectomy: No Hx Genitourinary Surgery: No Hx Section: No Hx Orthopedic Surgery: No Anesthesia Reaction: No - PPD History Previous Implant?: Yes Documented Results: Negative w/proof Implanted On Prior [facility] Admission?: Yes Date: 09/26/17 Results: NEGATIVE - Reproductive History Last Menstrual Period: 01/23/18 Patient : No - Smoking Cessation Smoking history: Current every day smoker Have you smoked in the past 12 months: Yes Aproximately how many cigarettes per day: 10 Hx Chewing Tobacco Use: No Initiated information on smoking cessation: No - Substances Abused Heroin Route: Injection Frequency: Daily Amount used: 3 -4 BAGS DAILY Age of first use: 19 Date of Last Use: 01/31/18 Family Disease History - Family Disease History Family Disease History: Other: Father (alive and well ), Mother (alive and well ) Admission Physical Exam S - Vital Signs Vital Signs: Vital Signs - 24 hr 01/31/18 10:34 Temperature 99.2 F Pulse Rate 119 H Respiratory 20 Rate Blood Pressure 136/98 - Physical General Appearance: Yes: Nourished, Appropriately Dressed, Moderate Distress, Irritable, Anxious, Other (very agitated , verbally abusive to specification writer) HEENTM: Yes: Hearing grossly Normal, Normocephalic, Normal Voice, DEYANIRA, Pharynx Normal, Other (dilated pupils) Respiratory: Yes: Within Normal Limits, Chest Non-Tender, Lungs Clear, Normal Breath Sounds, No Respiratory Distress, No Accessory Muscle Use Neck: Yes: Within Normal Limits, No masses,lesions,Nodules, Trachea in good position Breast: Yes: Breast Exam Deferred Cardiology: Yes: Regular Rhythm, Regular Rate, Tachycardia Abdominal: Yes: Within Normal Limits, Normal Bowel Sounds, Non Tender, Soft Back: Yes: Normal Inspection Musculoskeletal: Yes: Within Normal Limits, full range of Motion, Gait Steady, Pelvis Stable Extremities: Yes: Within Normal Limits, Normal Inspection, Normal Range of Motion, Non-Tender Neurological: Yes: Fully Oriented, Alert, Motor Strength 5/5, Other (anxious, agitated irritable) Integumentary: Yes: Normal Color, Dry, Warm, Track [place] Lymphatic: Yes: Within Normal Limits - Diagnostic (1) Nicotine dependence Current Visit: No Status: Acute Qualifiers: Nicotine product type: cigarettes Substance use status: in withdrawal Qualified Code(s): F17.213 - Nicotine dependence, cigarettes, with withdrawal (2) Opioid dependence with withdrawal Current Visit: No Status: Acute BHS Breath Alcohol Content Breath Alcohol Content: 0 Urine Pregancy Test - Result Urine Test Results: Negative- NO Line Present Urine Drug Screen - Results Drug Screen Negative: No Urine Drug Screen Results: THC-Marijuana, OPI-Opiates, BZO-Benzodiazepines, FEN- Fentanyl
[2018-01-31] MEDS ORDERED: MAGNESIUM CITRATE 300 ML BOTTLE PO PRN (11:24)
[2018-01-31] MEDS ORDERED: MAG HYDROX/AL HYDROX/SIMETH 30 ML UNIT-DOSE CUP PO PRN (11:24)
[2018-01-31] MEDS ORDERED: MENTHOL/PHENOL 1 EACH UD MM PRN (11:24)
[2018-01-31] MEDS ORDERED: MAGNESIUM HYDROX 2400MG/30ML ORAL SUSPENSION 30 ML CUP PO PRN (11:24)
[2018-01-31] MEDS ORDERED: P-EPHED 60MG/TRIPROLIDI 2.5MG TABLET PO PRN (11:24)
[2018-01-31] MEDS ORDERED: IBUPROFEN 400 MG TABLET (FP) PO PRN (11:24)
[2018-01-31] MEDS ORDERED: guaiFENesin/D-METHORPHAN HB 10 ML UNIT-DOSE CUPS PO PRN (11:24)
[2018-01-31] MEDS ORDERED: METHADONE HCL 10 MG TABLET (FOR DETOX USE ONLY) PO ONE ×2 (12:30→23:00)
[2018-01-31] MEDS: diazePAM 5 MG TABLET PO PRN ×3 (14:07→22:30)
[2018-01-31] MEDS: NICOTINE 7 MG/24 HOURS TOPICAL PATCH TD SCH (14:10)
[2018-01-31 18:41] LABS: URINE APPEARANCE CLEAR; URINE BILIRUBIN NEGATIVE (<2.0 mg/dL); URINE COLOR LTYELLOW; URINE GLUCOSE (UA) NEGATIVE (NEGATIVE); URINE KETONE NEGATIVE (NEGATIVE); URINE LEUK ESTERASE NEGATIVE (NEGATIVE); URINE NITRITE NEGATIVE (NEGATIVE); URINE PROTEIN NEGATIVE (NEGATIVE); URINE UROBILINOGEN NEGATIVE mg/dL (0.2-1.0)
[2018-01-31 18:49] LABS: EPI CELLS RARE /HPF (FEW); URINE BACTERIA FEW /hpf (NONE SEEN); URINE HYALINE CAST 1 /lpf
[2018-01-31] MEDS: MELATONIN 5 MG TABLETS PO PRN (22:31)
[2018-01-31] MEDS: THIAMINE HCL 100 MG TABLET (FP) PO SCH (22:31)
[2018-02-01] MEDS: diazePAM 5 MG TABLET PO PRN ×5 (05:27→22:57)
[2018-02-01] MEDS ORDERED: METHADONE HCL 10 MG TABLET (FOR DETOX USE ONLY) PO ONE (10:00)
[2018-02-01] MEDS: PRENATAL VITAMINS W/ FOLIC ACID TABLET (FP) PO SCH (10:24)
[2018-02-01] MEDS: NICOTINE 7 MG/24 HOURS TOPICAL PATCH TD SCH (10:24)
[2018-02-01 11:15] LABS: HEMATOCRIT 37.2 % (32.4-45.2); HEMOGLOBIN 12.2 GM/dL (10.7-15.3); MCHC 32.9 g/dl (32.0-36.0); MEAN CELL VOLUME 88.2 fl (80-96); MEAN PLT VOLUME 8.2 fl (7.5-11.1); PLATELET COUNT 344 K/MM3 (134-434); RBC 4.22 M/mm3 (3.60-5.2); WHITE BLOOD COUNT 4.9 K/mm3 (4.0-10.0)
[2018-02-01 11:39] LABS: ALBUMIN 3.3 g/dl (3.4-5.0); ALK PHOS 70 U/L (45-117); ANION GAP 5 MMOL/L (8-16); BILIRUBIN,TOTAL 0.4 mg/dL (0.2-1); BLOOD UREA NITROGEN 12 mg/dL (7-18); CALCIUM 9.4 mg/dL (8.5-10.1); CHLORIDE 105 mmol/L (98-107); CO2 28 mmol/L (21-32); CREATININE 0.6 mg/dL (0.55-1.3); GLUCOSE,RANDOM 79 mg/dL (74-106); POTASSIUM 4.1 mmol/L (3.5-5.1); SGOT/AST 11 U/L (15-37); SGPT/ALT 20 U/L (13-61); SODIUM 137 mmol/L (136-145); TOT PROT 6.9 g/dl (6.4-8.2)
--- NOTE | 2018-02-01 16:39 | PN ---
BHS COWS - Scale Resting Pulse: 0= [place] 80 or Below Sweatin= Chills/Flushing Restless Observation: 1= Difficult to Sit Still Pupil Size: 1= Pupils >than Normal Bone or Joint Aches: 2= Severe Diffuse Aches Runny Nose/ Eye Tearin= Nasal Congestion GI Upset > 30mins: 1= Stomach Cramp Tremor Observation of Outstretched Hands: 1= Tremor [place], Not Seen Yawning Observation: 1= 1-2x During Session Anxiety or Irritability: 1=Feels Anxious/Irritable Goose Flesh Skin: 0=Smooth Skin COWS Score: 10 BHS Progress Note (SOAP) Subjective: joints pain muscle aches sweat tremor trouble sleep at night Objective: 02/01/18 16:38 Vital Signs Temperature 98.2 F 02/01/18 14:39 Pulse Rate 71 02/01/18 14:39 Respiratory Rate 16 02/01/18 14:39 Blood Pressure 122/61 02/01/18 14:39 O2 Sat by Pulse Oximetry (%) Laboratory Last Values WBC 4.9 K/mm3 (4.0-10.0) 02/01/18 07:30 RBC 4.22 M/mm3 (3.60-5.2) 02/01/18 07:30 Hgb 12.2 GM/dL (10.7-15.3) 02/01/18 07:30 Hct 37.2 % (32.4-45.2) 02/01/18 07:30 MCV 88.2 fl (80-96) 02/01/18 07:30 MCH 29.0 pg (25.7-33.7) 02/01/18 07:30 MCHC 32.9 g/dl (32.0-36.0) 02/01/18 07:30 RDW 14.0 % (11.6-15.6) 02/01/18 07:30 Plt Count 344 K/MM3 (134-434) 02/01/18 07:30 MPV 8.2 fl (7.5-11.1) 02/01/18 07:30 Sodium 137 mmol/L (136-145) 02/01/18 07:30 Potassium 4.1 mmol/L (3.5-5.1) 02/01/18 07:30 Chloride 105 mmol/L (98-107) 02/01/18 07:30 Carbon Dioxide 28 mmol/L (21-32) 02/01/18 07:30 Anion Gap 5 MMOL/L (8-16) L 02/01/18 07:30 BUN 12 mg/dL (7-18) 02/01/18 07:30 Creatinine 0.6 mg/dL (0.55-1.3) 02/01/18 07:30 Creat Clearance w eGFR > 60 (>60) 02/01/18 07:30 Random Glucose 79 mg/dL (74-106) 02/01/18 07:30 Calcium 9.4 mg/dL (8.5-10.1) 02/01/18 07:30 Total Bilirubin 0.4 mg/dL (0.2-1) 02/01/18 07:30 AST 11 U/L (15-37) L 02/01/18 07:30 ALT 20 U/L (13-61) 02/01/18 07:30 Alkaline Phosphatase 70 U/L (45-117) 02/01/18 07:30 Total Protein 6.9 g/dl (6.4-8.2) 02/01/18 07:30 Albumin 3.3 g/dl (3.4-5.0) L 02/01/18 07:30 Urine Color L[place] 01/31/18 14:10 Urine Appearance Clear 01/31/18 14:10 Urine pH 6.0 (5.0-8.0) 01/31/18 14:10 Ur Specific [place] 1.018 (1.010-1.035) 01/31/18 14:10 Urine Protein Negative (NEGATIVE) 01/31/18 14:10 Urine Glucose (UA) Negative (NEGATIVE) 01/31/18 14:10 Urine Ketones Negative (NEGATIVE) 01/31/18 14:10 Urine Blood 1+ (NEGATIVE) H 01/31/18 14:10 Urine Nitrite Negative (NEGATIVE) 01/31/18 14:10 Urine Bilirubin Negative (<2.0 mg/dL) 01/31/18 14:10 Urine Urobilinogen Negative mg/dL (0.2-1.0) 01/31/18 14:10 Ur Leukocyte Esterase Negative (NEGATIVE) 01/31/18 14:10 Urine WBC (Auto) 6 /hpf (3-5) 01/31/18 14:10 Urine RBC (Auto) 5 /hpf (0-3) 01/31/18 14:10 Ur Epithelial Cells Rare /HPF (FEW) 01/31/18 14:10 Urine Bacteria Few /hpf (NONE SEEN) 01/31/18 14:10 Hyaline Casts 1 /lpf 01/31/18 14:10 RPR Titer Nonreactive (NONREACTIVE) 02/01/18 07:30 lab noted Assessment: 02/01/18 16:39 withdrawal sx Plan: continue detox
[2018-02-01] MEDS: NICOTINE POLACRILEX 2 MG GUM BUC PRN (17:41)
[2018-02-01] MEDS: MELATONIN 5 MG TABLETS PO PRN (22:39)
[2018-02-01] MEDS: THIAMINE HCL 100 MG TABLET (FP) PO SCH (22:39)
[2018-02-02] MEDS: diazePAM 5 MG TABLET PO PRN ×5 (05:31→22:51)
--- NOTE | 2018-02-02 09:59 | PN ---
BHS COWS - Scale Resting Pulse: 0= [place] 80 or Below Sweatin=Flushed/Facial Moisture Restless Observation: 1= Difficult to Sit Still Pupil Size: 0= Normal to Room Light Bone or Joint Aches: 2= Severe Diffuse Aches Runny Nose/ Eye Tearin= Nasal Congestion GI Upset > 30mins: 1= Stomach Cramp Tremor Observation of Outstretched Hands: 2= Slight Tremor Visible Yawning Observation: 2= >3x During Session Anxiety or Irritability: 2=Irritable/Anxious Goose Flesh Skin: 0=Smooth Skin COWS Score: 13 BHS Progress Note (SOAP) Subjective: body aches sweats shakes irritable agitation body aches I need my nicotine patch dose increased. Objective: 02/02/18 09:58 Vital Signs Temperature 97.9 F 02/02/18 09:14 Pulse Rate 69 02/02/18 09:14 Respiratory Rate 18 02/02/18 09:14 Blood Pressure 114/76 02/02/18 09:14 O2 Sat by Pulse Oximetry (%) Laboratory Tests 01/31/18 02/01/18 02/01/18 14:10 07:30 07:30 WBC 4.9 RBC 4.22 Hgb 12.2 Hct 37.2 MCV 88.2 MCH 29.0 MCHC 32.9 RDW 14.0 Plt Count 344 MPV 8.2 Sodium 137 Potassium 4.1 Chloride 105 Carbon Dioxide 28 Anion Gap 5 L BUN 12 Creatinine 0.6 Creat Clearance w eGFR > 60 Random Glucose 79 Calcium 9.4 Total Bilirubin 0.4 AST 11 L ALT 20 Alkaline Phosphatase 70 Total Protein 6.9 Albumin 3.3 L Urine Color Ltyellow Urine Appearance Clear Urine pH 6.0 Ur Specific [place] 1.018 Urine Protein Negative Urine Glucose (UA) Negative Urine Ketones Negative Urine Blood 1+ H Urine Nitrite Negative Urine Bilirubin Negative Urine Urobilinogen Negative Ur Leukocyte Esterase Negative Urine WBC (Auto) 6 Urine RBC (Auto) 5 Ur Epithelial Cells Rare Urine Bacteria Few Hyaline Casts 1 RPR Titer 02/01/18 07:30 WBC RBC Hgb Hct MCV MCH MCHC RDW Plt Count MPV Sodium Potassium Chloride Carbon Dioxide Anion Gap BUN Creatinine Creat Clearance w eGFR Random Glucose Calcium Total Bilirubin AST ALT Alkaline Phosphatase Total Protein Albumin Urine Color Urine Appearance Urine pH Ur Specific [place] Urine Protein Urine Glucose (UA) Urine Ketones Urine Blood Urine Nitrite Urine Bilirubin Urine Urobilinogen Ur Leukocyte Esterase Urine WBC (Auto) Urine RBC (Auto) Ur Epithelial Cells Urine Bacteria Hyaline Casts RPR Titer Nonreactive aaox3 ambulating no acute distress Assessment: 02/02/18 09:58 withdrawal sx Plan: continue detox increase fluids nicotine patch 21mg
[2018-02-02] MEDS ORDERED: METHADONE HCL 5 MG TABLET (FOR DETOX USE ONLY) PO ONE (10:00)
[2018-02-02] MEDS: PRENATAL VITAMINS W/ FOLIC ACID TABLET (FP) PO SCH (10:13)
[2018-02-02] MEDS: NICOTINE POLACRILEX 2 MG GUM BUC PRN (10:17)
[2018-02-02] MEDS: NICOTINE 21 MG/24 HOURS TOPICAL PATCH TD SCH (10:17)
--- NOTE | 2018-02-02 10:43 | EKG ---
Test Reason : Blood Pressure : / mmHG Vent. Rate : 083 BPM Atrial Rate : 083 BPM P-R Int : 172 ms QRS Dur : 088 ms QT Int : 348 ms P-R-T Axes : 070 086 051 degrees QTc Int : 408 ms NORMAL SINUS RHYTHM POSSIBLE LEFT ATRIAL ENLARGEMENT BORDERLINE ECG WHEN COMPARED WITH ECG OF 18-DEC-2017 20:56, NO SIGNIFICANT CHANGE WAS FOUND Confirmed by ANA LILIA CARRENO MD ([id number]) on 02/02/2018 10:43:03 AM Referred By: Jyoti Tamayo Confirmed By:ANA LILIA CARRENO MD
[2018-02-02 15:19] LABS: URINE APPEARANCE SLCLOUDY; URINE BILIRUBIN NEGATIVE (<2.0 mg/dL); URINE COLOR LTYELLOW; URINE GLUCOSE (UA) NEGATIVE (NEGATIVE); URINE KETONE NEGATIVE (NEGATIVE); URINE LEUK ESTERASE NEGATIVE (NEGATIVE); URINE NITRITE NEGATIVE (NEGATIVE); URINE PROTEIN NEGATIVE (NEGATIVE); URINE UROBILINOGEN NEGATIVE mg/dL (0.2-1.0)
[2018-02-02] MEDS: ACETAMINOPHEN 325 MG TABLET (FP) PO PRN (22:28)
[2018-02-02] MEDS: THIAMINE HCL 100 MG TABLET (FP) PO SCH (22:28)
[2018-02-03] MEDS ORDERED: METHADONE HCL 10 MG TABLET (FOR DETOX USE ONLY) PO ONE (10:00)
[2018-02-03] MEDS: NICOTINE 21 MG/24 HOURS TOPICAL PATCH TD SCH (10:20)
[2018-02-03] MEDS: PRENATAL VITAMINS W/ FOLIC ACID TABLET (FP) PO SCH (10:20)
--- NOTE | 2018-02-03 11:29 | PN ---
BHS Progress Note (SOAP) Subjective: sweats teary eyes agitation Objective: 02/03/18 11:28 Vital Signs Temperature 99.5 F 02/03/18 09:45 Pulse Rate 78 02/03/18 09:45 Respiratory Rate 16 02/03/18 09:45 Blood Pressure 114/72 02/03/18 09:45 O2 Sat by Pulse Oximetry (%) aaox3 ambulating no acute distress Assessment: 02/03/18 11:29 withdrawal sx Plan: continue detox increase fluids d/c yao
[2018-02-03] MEDS: THIAMINE HCL 100 MG TABLET (FP) PO SCH (22:44)
[2018-02-04] MEDS ORDERED: METHADONE HCL 5 MG TABLET (FOR DETOX USE ONLY) PO ONE (06:00)
--- NOTE | 2018-02-04 09:36 | DS ---
[facility] Detox Discharge Summary Admission Date: 01/31/18 Discharge Date: 02/04/18 - History Present History: Opioid Dependence - Physical Exam Results Vital Signs: Vital Signs Temperature 97.7 F 02/04/18 07:25 Pulse Rate 77 02/04/18 07:25 Respiratory Rate 18 02/04/18 07:25 Blood Pressure 119/70 02/04/18 07:25 O2 Sat by Pulse Oximetry (%) - Treatment Hospital Course: Detox Protocol Followed, Detoxed Safely, Responded well, Discharged Condition Good, Rehab Referral Accepted - Medication Discharge Medications: Ambulatory Orders NK [No Known Home Medication] 12/18/17 - Diagnosis (1) Anxiety Current Visit: No Status: Acute (2) Depressed affect Current Visit: No Status: Acute (3) Gastroenteritis Current Visit: No Status: Acute (4) Nicotine dependence Current Visit: No Status: Acute Qualifiers: Nicotine product type: cigarettes Substance use status: uncomplicated Qualified Code(s): F17.210 - Nicotine dependence, cigarettes, uncomplicated (5) Opioid dependence with withdrawal Current Visit: Yes Status: Chronic (6) Opioid-induced sleep disorder, insomnia type, with onset during discontinuation/withdrawal Current Visit: No Status: Acute (7) Sprain of ankle, right Current Visit: No Status: Acute Qualifiers: Encounter type: initial encounter Involved ligament of ankle: unspecified ligament Qualified Code(s): S93.401A - Sprain of unspecified ligament of right ankle, initial encounter (8) ADHD Current Visit: No Status: Chronic (9) Opioid dependence with withdrawal Current Visit: Yes Status: Chronic (10) Constipation Current Visit: Yes Status: Acute Qualifiers: Constipation type: unspecified constipation type Qualified Code(s): K59.00 - Constipation, unspecified - AMA Did Patient Leave Against Medical Advice: No (going home then to [facility])
[2018-02-04] MEDS ORDERED: SODIUM PHOSPHATE/NA BIPHOS 133 ML ENEMA PR ONE (10:15)
[2018-02-04] MEDS: NICOTINE 21 MG/24 HOURS TOPICAL PATCH TD SCH (11:09)
[2018-02-04] MEDS: PRENATAL VITAMINS W/ FOLIC ACID TABLET (FP) PO SCH (11:09)
[2018-02-04] MEDS ORDERED: HYDROCORTISONE 2.5% TOPICAL CREAM 30 GM TUBE PR ONE (11:18)
[2018-02-04] MEDS: ACETAMINOPHEN 325 MG TABLET (FP) PO PRN (12:11)
[2018-02-04 13:34] VITALS: BP 133/73; PULSE 105; TEMP 97.8
== END 2018-02-04 13:39 | disposition home or self-care (01) | DRG 773 ==
LOC: YASAS 09:55 → Y6N 12:07
PROC: HZ2ZZZZ Detoxification Services for Substance Abuse Treatment (ICD-10-PCS; principal; 2018-01-31)
DX: F11.23 Opioid dependence with withdrawal (principal); F11.282 Opioid dependence with opioid-induced sleep disorder; F17.213 Nicotine dependence, cigarettes, with withdrawal; F41.9 Anxiety disorder, unspecified; F32.9 Major depressive disorder, single episode, unspecified; F90.9 Attention-deficit hyperactivity disorder, unspecified type; R00.0 Tachycardia, unspecified; K52.9 Noninfective gastroenteritis and colitis, unspecified; K59.00 Constipation, unspecified
CPT/HCPCS: 36415; 80053; 81003; 81015; 85027; 86593; 93005; 93010

== ENCOUNTER 2018-03-07 10:20 | Inpatient (IN) | payer OTHER ==
[2018-03-07 10:46] VITALS: BMI 27.8
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
[2018-03-07] MEDS ORDERED: MENTHOL/PHENOL 1 EACH UD MM PRN (12:00)
[2018-03-07] MEDS ORDERED: MAG HYDROX/AL HYDROX/SIMETH 30 ML UNIT-DOSE CUP PO PRN (12:00)
[2018-03-07] MEDS ORDERED: IBUPROFEN 400 MG TABLET (FP) PO PRN (12:00)
[2018-03-07] MEDS ORDERED: ACETAMINOPHEN 325 MG TABLET (FP) PO PRN (12:00)
[2018-03-07] MEDS ORDERED: MAGNESIUM HYDROX 2400MG/30ML ORAL SUSPENSION 30 ML CUP PO PRN (12:00)
[2018-03-07] MEDS ORDERED: P-EPHED 60MG/TRIPROLIDI 2.5MG TABLET PO PRN (12:00)
[2018-03-07] MEDS ORDERED: LOPERAMIDE HCL 2 MG CAPSULE PO PRN (12:00)
[2018-03-07] MEDS ORDERED: MAGNESIUM CITRATE 300 ML BOTTLE PO PRN (12:00)
[2018-03-07] MEDS ORDERED: guaiFENesin/D-METHORPHAN HB 10 ML UNIT-DOSE CUPS PO PRN (12:00)
[2018-03-07] MEDS ORDERED: METHADONE HCL 10 MG TABLET (FOR DETOX USE ONLY) PO ONE ×2 (13:45→23:00)
[2018-03-07] MEDS: diazePAM 5 MG TABLET PO PRN ×3 (13:59→22:17)
[2018-03-07] MEDS: NICOTINE 21 MG/24 HOURS TOPICAL PATCH TD SCH (13:59)
[2018-03-07] MEDS: NICOTINE POLACRILEX 4 MG GUM BUC PRN (19:02)
[2018-03-07 19:18] LABS: URINE APPEARANCE SLCLOUDY; URINE BILIRUBIN NEGATIVE (<2.0 mg/dL); URINE COLOR YELLOW; URINE GLUCOSE (UA) NEGATIVE (NEGATIVE); URINE KETONE NEGATIVE (NEGATIVE); URINE LEUK ESTERASE NEGATIVE (NEGATIVE); URINE NITRITE NEGATIVE (NEGATIVE); URINE PROTEIN NEGATIVE (NEGATIVE); URINE UROBILINOGEN NEGATIVE mg/dL (0.2-1.0)
[2018-03-07] MEDS ORDERED: TERCONAZOLE 80 MG VG SCH (22:00)
[2018-03-07] MEDS: METRONIDAZOLE PO SCH (22:16)
[2018-03-07] MEDS: THIAMINE HCL 100 MG TABLET (FP) PO SCH (22:16)
[2018-03-07] MEDS: TERCONAZOLE VG SCH (22:16)
[2018-03-07] MEDS: MELATONIN 5 MG TABLETS PO PRN (22:19)
[2018-03-08] MEDS: diazePAM 5 MG TABLET PO PRN ×4 (06:37→22:18)
[2018-03-08] MEDS ORDERED: ONDANSETRON *ODT* 4 MG TABLET SL PRN (07:32)
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
[2018-03-08] MEDS ORDERED: METHADONE HCL 10 MG TABLET (FOR DETOX USE ONLY) PO ONE (10:00)
[2018-03-08 10:30] LABS: HEMATOCRIT 44.9 % (32.4-45.2); HEMOGLOBIN 14.7 GM/dL (10.7-15.3); MCH 29.6 pg (25.7-33.7); MCHC 32.8 g/dl (32.0-36.0); MEAN CELL VOLUME 90.2 fl (80-96); MEAN PLT VOLUME 9.4 fl (7.5-11.1); PLATELET COUNT 337 K/MM3 (134-434); RBC 4.98 M/mm3 (3.60-5.2); RDW 14.1 % (11.6-15.6); WHITE BLOOD COUNT 5.5 K/mm3 (4.0-10.0)
[2018-03-08] MEDS: PRENATAL VITAMINS W/ FOLIC ACID TABLET (FP) PO SCH (10:33)
[2018-03-08] MEDS: METRONIDAZOLE PO SCH ×2 (10:35→22:18)
[2018-03-08] MEDS: NICOTINE 21 MG/24 HOURS TOPICAL PATCH TD SCH (10:36)
[2018-03-08 10:40] LABS: ALK PHOS 68 U/L (45-117); ANION GAP 8 MMOL/L (8-16); BILIRUBIN,TOTAL 0.5 mg/dL (0.2-1); BLOOD UREA NITROGEN 13 mg/dL (7-18); CALCIUM 9.3 mg/dL (8.5-10.1); CHLORIDE 101 mmol/L (98-107); CO2 27 mmol/L (21-32); CREATININE 0.7 mg/dL (0.55-1.3); GLUCOSE,RANDOM 94 mg/dL (74-106); POTASSIUM 4.2 mmol/L (3.5-5.1); SGOT/AST 15 U/L (15-37); SGPT/ALT 16 U/L (13-61); SODIUM 136 mmol/L (136-145); TOT PROT 7.8 g/dl (6.4-8.2)
--- NOTE | 2018-03-08 11:26 | PN ---
BHS COWS - Scale Resting Pulse: 1= [place] 81-100 Sweatin= Chills/Flushing Restless Observation: 1= Difficult to Sit Still Pupil Size: 0= Normal to Room Light Bone or Joint Aches: 1= Mild Discomfort Runny Nose/ Eye Tearin= Nasal Congestion GI Upset > 30mins: 1= Stomach Cramp Tremor Observation of Outstretched Hands: 1= Tremor [place], Not Seen Yawning Observation: 0= None Anxiety or Irritability: 0= None Goose Flesh Skin: 0=Smooth Skin COWS Score: 7 BHS Progress Note (SOAP) Subjective: had good night sleep mild body aches no tremor less sweat wants to begin rehab one day earlier modified methadone detox regimen Objective: 03/08/18 11:24 Vital Signs Temperature 97.9 F 03/08/18 10:24 Pulse Rate 92 H 03/08/18 10:24 Respiratory Rate 18 03/08/18 10:24 Blood Pressure 97/67 03/08/18 10:24 O2 Sat by Pulse Oximetry (%) Laboratory Last Values WBC 5.5 K/mm3 (4.0-10.0) 03/08/18 07:40 RBC 4.98 M/mm3 (3.60-5.2) 03/08/18 07:40 Hgb 14.7 GM/dL (10.7-15.3) 03/08/18 07:40 Hct 44.9 % (32.4-45.2) D 03/08/18 07:40 MCV 90.2 fl (80-96) 03/08/18 07:40 MCH 29.6 pg (25.7-33.7) 03/08/18 07:40 MCHC 32.8 g/dl (32.0-36.0) 03/08/18 07:40 RDW 14.1 % (11.6-15.6) 03/08/18 07:40 Plt Count 337 K/MM3 (134-434) 03/08/18 07:40 MPV 9.4 fl (7.5-11.1) D 03/08/18 07:40 Sodium 136 mmol/L (136-145) 03/08/18 07:40 Potassium 4.2 mmol/L (3.5-5.1) 03/08/18 07:40 Chloride 101 mmol/L (98-107) 03/08/18 07:40 Carbon Dioxide 27 mmol/L (21-32) 03/08/18 07:40 Anion Gap 8 MMOL/L (8-16) 03/08/18 07:40 BUN 13 mg/dL (7-18) 03/08/18 07:40 Creatinine 0.7 mg/dL (0.55-1.3) 03/08/18 07:40 Creat Clearance w eGFR > 60 (>60) 03/08/18 07:40 Random Glucose 94 mg/dL (74-106) 03/08/18 07:40 Calcium 9.3 mg/dL (8.5-10.1) 03/08/18 07:40 Total Bilirubin 0.5 mg/dL (0.2-1) 03/08/18 07:40 AST 15 U/L (15-37) 03/08/18 07:40 ALT 16 U/L (13-61) 03/08/18 07:40 Alkaline Phosphatase 68 U/L (45-117) 03/08/18 07:40 Total Protein 7.8 g/dl (6.4-8.2) 03/08/18 07:40 Albumin 4.0 g/dl (3.4-5.0) 03/08/18 07:40 Urine Color Yellow 03/07/18 17:30 Urine Appearance Slcloudy 03/07/18 17:30 Urine pH 6.0 (5.0-8.0) 03/07/18 17:30 Ur Specific [place] 1.026 (1.010-1.035) 03/07/18 17:30 Urine Protein Negative (NEGATIVE) 03/07/18 17:30 Urine Glucose (UA) Negative (NEGATIVE) 03/07/18 17:30 Urine Ketones Negative (NEGATIVE) 03/07/18 17:30 Urine Blood Negative (NEGATIVE) 03/07/18 17:30 Urine Nitrite Negative (NEGATIVE) 03/07/18 17:30 Urine Bilirubin Negative (<2.0 mg/dL) 03/07/18 17:30 Urine Urobilinogen Negative mg/dL (0.2-1.0) 03/07/18 17:30 Ur Leukocyte Esterase Negative (NEGATIVE) 03/07/18 17:30 RPR Titer Nonreactive (NONREACTIVE) 03/08/18 07:40 lab noted Assessment: 03/08/18 11:25 withdrawal sx Plan: continue detox
[2018-03-08] MEDS: NICOTINE POLACRILEX 4 MG GUM BUC PRN (19:23)
[2018-03-08] MEDS: TERCONAZOLE VG SCH (22:18)
[2018-03-08] MEDS: THIAMINE HCL 100 MG TABLET (FP) PO SCH (22:18)
[2018-03-08] MEDS: MELATONIN 5 MG TABLETS PO PRN (22:19)
[2018-03-09] MEDS ORDERED: METHADONE HCL 5 MG TABLET (FOR DETOX USE ONLY) PO ONE (10:00)
[2018-03-09] MEDS: METRONIDAZOLE PO SCH ×2 (10:42→22:14)
[2018-03-09] MEDS: PRENATAL VITAMINS W/ FOLIC ACID TABLET (FP) PO SCH (10:42)
[2018-03-09] MEDS: NICOTINE 21 MG/24 HOURS TOPICAL PATCH TD SCH (10:43)
[2018-03-09] MEDS: diazePAM 5 MG TABLET PO PRN ×3 (10:43→22:15)
--- NOTE | 2018-03-09 10:44 | PN ---
BHS COWS - Scale Resting Pulse: 1= [place] 81-100 Sweatin=Flushed/Facial Moisture Restless Observation: 1= Difficult to Sit Still Pupil Size: 0= Normal to Room Light Bone or Joint Aches: 2= Severe Diffuse Aches Runny Nose/ Eye Tearin= Nasal Congestion GI Upset > 30mins: 0= None Tremor Observation of Outstretched Hands: 2= Slight Tremor Visible Yawning Observation: 0= None Anxiety or Irritability: 2=Irritable/Anxious Goose Flesh Skin: 0=Smooth Skin COWS Score: 11 BHS Progress Note (SOAP) Subjective: restless body aches sweats interrupted sleep Objective: 03/09/18 10:45 Vital Signs Temperature 97.7 F 03/09/18 09:33 Pulse Rate 87 03/09/18 09:33 Respiratory Rate 18 03/09/18 09:33 Blood Pressure 128/70 03/09/18 09:33 O2 Sat by Pulse Oximetry (%) Laboratory Tests 03/07/18 03/08/18 03/08/18 17:30 07:40 07:40 WBC 5.5 RBC 4.98 Hgb 14.7 Hct 44.9 D MCV 90.2 MCH 29.6 MCHC 32.8 RDW 14.1 Plt Count 337 MPV 9.4 D Sodium 136 Potassium 4.2 Chloride 101 Carbon Dioxide 27 Anion Gap 8 BUN 13 Creatinine 0.7 Creat Clearance w eGFR > 60 Random Glucose 94 Calcium 9.3 Total Bilirubin 0.5 AST 15 ALT 16 Alkaline Phosphatase 68 Total Protein 7.8 Albumin 4.0 Urine Color Yellow Urine Appearance Slcloudy Urine pH 6.0 Ur Specific [place] 1.026 Urine Protein Negative Urine Glucose (UA) Negative Urine Ketones Negative Urine Blood Negative Urine Nitrite Negative Urine Bilirubin Negative Urine Urobilinogen Negative Ur Leukocyte Esterase Negative RPR Titer 03/08/18 07:40 WBC RBC Hgb Hct MCV MCH MCHC RDW Plt Count MPV Sodium Potassium Chloride Carbon Dioxide Anion Gap BUN Creatinine Creat Clearance w eGFR Random Glucose Calcium Total Bilirubin AST ALT Alkaline Phosphatase Total Protein Albumin Urine Color Urine Appearance Urine pH Ur Specific [place] Urine Protein Urine Glucose (UA) Urine Ketones Urine Blood Urine Nitrite Urine Bilirubin Urine Urobilinogen Ur Leukocyte Esterase RPR Titer Nonreactive aaox3 ambulating no acute distress Assessment: 03/09/18 10:46 withdrawal sx Plan: continue detox increase fluids
[2018-03-09] MEDS: MELATONIN 5 MG TABLETS PO PRN (22:15)
[2018-03-09] MEDS: THIAMINE HCL 100 MG TABLET (FP) PO SCH (22:15)
--- NOTE | 2018-03-09 23:53 | EKG ---
Test Reason : Blood Pressure : / mmHG Vent. Rate : 064 BPM Atrial Rate : 064 BPM P-R Int : 172 ms QRS Dur : 098 ms QT Int : 408 ms P-R-T Axes : 062 080 060 degrees QTc Int : 420 ms NORMAL SINUS RHYTHM WITH SINUS ARRHYTHMIA NORMAL ECG WHEN COMPARED WITH ECG OF 31-JAN-2018 13:35, NO SIGNIFICANT CHANGE WAS FOUND Confirmed by ANA LILIA CARRENO MD ([id number]) on 03/09/2018 11:53:36 PM Referred By: Confirmed By:ANA LILIA CARRENO MD
[2018-03-10] MEDS ORDERED: METHADONE HCL 5 MG TABLET (FOR DETOX USE ONLY) PO ONE ×2 (10:00)
[2018-03-10] MEDS: METRONIDAZOLE PO SCH (10:15)
[2018-03-10] MEDS: PRENATAL VITAMINS W/ FOLIC ACID TABLET (FP) PO SCH (10:15)
[2018-03-10] MEDS: NICOTINE 21 MG/24 HOURS TOPICAL PATCH TD SCH (10:17)
--- NOTE | 2018-03-10 11:42 | PN ---
BHS Progress Note (SOAP) Subjective: feeling better little anxiety Objective: 03/10/18 11:41 Vital Signs Temperature 98.2 F 03/10/18 09:47 Pulse Rate 97 H 03/10/18 09:47 Respiratory Rate 18 03/10/18 09:47 Blood Pressure 121/68 03/10/18 09:47 O2 Sat by Pulse Oximetry (%) aaox3 ambulating no acute distress Assessment: 03/10/18 11:41 mild withdrawal sx Plan: continue detox d/c in am
[2018-03-10 17:35] VITALS: BP 133/74; PULSE 88; TEMP 98.4
--- NOTE | 2018-03-10 18:22 | PN ---
[facility] Progress Note Note: Psychiatric nurse practitioner note: Chart reviewed. Dr. Monaco's note read and appreciated. Will order Belsomra 10mg qhs prn for insomnia.
[2018-03-10] MEDS ORDERED: SUVOREXANT 10 MG TABLET PO PRN (22:00)
[2018-03-11] MEDS ORDERED: METHADONE HCL 5 MG TABLET (FOR DETOX USE ONLY) PO ONE (06:00)
[2018-03-11] MEDS ORDERED: METHADONE HCL 10 MG TABLET (FOR DETOX USE ONLY) PO ONE (10:00)
[2018-03-12] MEDS ORDERED: METHADONE HCL 5 MG TABLET (FOR DETOX USE ONLY) PO ONE (06:00)
== END 2018-03-10 17:50 | disposition left against medical advice (07) | DRG 770 ==
LOC: YASAS 10:20 → Y6N 13:04
PROC: HZ2ZZZZ Detoxification Services for Substance Abuse Treatment (ICD-10-PCS; principal; 2018-03-07)
DX: F11.23 Opioid dependence with withdrawal (principal); F10.10 Alcohol abuse, uncomplicated; F17.210 Nicotine dependence, cigarettes, uncomplicated; F19.24 Other psychoactive substance dependence with psychoactive substance-induced mood disorder; F19.282 Other psychoactive substance dependence with psychoactive substance-induced sleep disorder; F41.9 Anxiety disorder, unspecified; F32.9 Major depressive disorder, single episode, unspecified; N89.8 Other specified noninflammatory disorders of vagina
CPT/HCPCS: 36415; 80053; 81003; 85027; 86593; 93005; 93010; Q0162

== ENCOUNTER 2023-05-16 11:36 | Emergency (ER) | payer OTHER ==
[2023-05-16 12:13] VITALS: BP 112/59; PULSE 82; RESP 18; TEMP 98.2; BMI 27.1
[2023-05-16] MEDS ORDERED: GABAPENTIN 100 MG CAPSULE PO ONE (12:45)
[2023-05-16] MEDS ORDERED: ONDANSETRON 4 MG TABLET PO ONE ×2 (12:46→12:58)
[2023-05-16] MEDS ORDERED: GABAPENTIN 100 MG CAPSULE ONE (12:59)
== END 2023-05-16 13:04 | disposition home or self-care (01) ==
LOC: JER 11:36
DX: F41.9 Anxiety disorder, unspecified (principal)
CPT/HCPCS: 99283-25